=== PATIENT | male | born 1935 | race American Indian/Alaskan Native ===

== ENCOUNTER 2020-04-20 14:38 | Inpatient (IN) | payer MEDICARE, OTHER ==
[2020-04-20] MEDS ORDERED: FUROSEMIDE 40 MG/4 ML INJ IV ONE (14:46)
[2020-04-20] MEDS ORDERED: methylPREDNISolone Sod Succinate 125 MG/2 ML INJ IV ONE (14:46)
--- NOTE | 2020-04-20 15:33 | XRay Report ---
XR chest 1V ap INDICATION / CLINICAL INFORMATION: Hypoxia positive Covid test CHF. COMPARISON: 03/30/2020 FINDINGS: SUPPORT DEVICES: None. HEART /PULMONARY VASCULATURE: Within normal limits. LUNGS / PLEURA: Subtle patchy bilateral airspace opacities are present. No pleural effusion or pneumo thorax. ADDITIONAL FINDINGS: No significant additional findings. IMPRESSION: Subtle patchy bilateral airspace opacities, compatible with pneumonia. Findings are in keeping with r eported history of COVID. Signer Name: Alberto Sargent MD Signed: 04/20/2020 3:28 PM Workstation Name: [id number]
[2020-04-20 15:51] LABS: Hematocrit 32.1 % (35.5-45.6); Hemoglobin 10.4 gm/dl (11.8-15.2); Mean Corpuscular HGB Conc 32 % (32-34); Mean Corpuscular Volume 92 fl (84-94); Platelet Count 106 K/mm3 (140-440); Red Blood Count 3.47 M/mm3 (3.65-5.03); Red Cell Distribution Width 15.5 % (13.2-15.2)
[2020-04-20] MEDS ORDERED: VANCOMYCIN 2,000 MG in SODIUM CHLORIDE 0.9% 500 ML 500 ML IV ONE (16:00)
[2020-04-20] MEDS ORDERED: CEFEPIME/NS 2 GM/100 ML 2 GM/100 ML BAG IV SCH (16:00)
[2020-04-20] MEDS ORDERED: VANCOMYCIN PHARMACY TO DOSE IV SCH (16:00)
[2020-04-20 16:08] LABS: Albumin 1.8 g/dL (3.9-5); Calcium 7.9 mg/dL (8.4-10.2)
[2020-04-20 16:22] LABS: Chol/HDL Ratio 4.96 %
[2020-04-20 17:03] LABS: Basophils % (Manual) 0 % (0.0-1.8); Burr Cells Rare; Eosinophils % (Manual) 0 % (0.0-4.3); Macrocytosis Rare; Schistocytes Rare; Total Cells Counted 100
--- NOTE | 2020-04-20 17:27 | Emergency Department Report ---
ED Shortness of Breath HPI - General Chief Complaint: Dyspnea/Respdistress Stated Complaint: MANNIE/POSS COVID + Time Seen by Provider: 04/20/20 14:41 Source: patient, EMS Mode of arrival: Stretcher Limitations: No Limitations - History of Present Illness Initial Comments: CC: shortness of breath, +COVID HPI: This is an 84 yo male with hx of sepsis, UTI, chronic indwelling Velez catheter, diabetes mellitus, systolic heart failure, hypertension who presents with "pain all over". Also reported shortness of breath respiratory distress from medical staff at [facility]. Patient had a recent COVID-19 test 9 days ago on April 11. Patient has mild cough. Gradual symptoms today. MD Complaint: shortness of breath -: Gradual, days(s) (1) Severity: severe Consistency: constant Improves With: oxygen Worsens With: nothing Known History Of: congestive heart failure, other (Positive for COVID-19) Context: recent illness (Positive for COVID-19) Associated Symptoms: other (Body aches) Treatments Prior to Arrival: none (EMS transport with oxygen) - Related Data Home Medications Medication Instructions Recorded Confirmed Last Taken Bimatoprost [Lumigan 0.01%] 1 drop OP QPM 01/06/18 04/20/20 Unknown Colchicine 0.6 mg PO QDAY 01/06/18 04/20/20 Unknown Acetaminophen [Tylenol] 2 tab PO Q6H PRN 04/20/20 04/20/20 Unknown Furosemide [Lasix TAB] 40 mg PO QDAY 04/20/20 04/20/20 Unknown Potassium 20 meq PO DAILY 04/20/20 04/20/20 Unknown cephALEXin [Keflex] 500 mg PO QID 04/20/20 04/20/20 Unknown traMADoL [Ultram] 50 mg PO Q4HR PRN 04/20/20 04/20/20 Unknown Previous Rx's Medication Instructions Recorded Last Taken Type Apixaban [Eliquis] 5 mg PO BID #60 tablet 04/11/20 Unknown Rx Insulin Glargine [Lantus VIAL] 25 units SUB-Q QHS units 04/11/20 Unknown Rx Insulin Glargine [Lantus VIAL] 30 units SUB-Q QAMDIAB units 04/11/20 Unknown Rx Insulin Lispro [Humalog] 0 unit SUB-Q ACHS vial 04/11/20 Unknown Rx Insulin Lispro [Humalog] 10 unit SUB-Q AC vial 04/11/20 Unknown Rx Valsartan [Diovan] 160 mg PO DAILY tablet 04/11/20 Unknown Rx amLODIPine 10 mg PO QDAY tablet 04/11/20 Unknown Rx carvediloL [Coreg] 25 mg PO BID tablet 04/11/20 Unknown Rx hydrALAZINE [Apresoline TAB] 50 mg PO Q12HR tablet 04/11/20 Unknown Rx Allergies Allergy/AdvReac Type Severity Reaction Status Date / Time No Known Allergies Allergy Unverified 01/06/18 00:20 ED Review of Systems ROS: Stated complaint: MANNIE/POSS COVID + Other details as noted in HPI Comment: Unobtainable due to pts medical conditions (Limited due to severe work of breathing) ED Past Medical Hx - Past Medical History Previous Medical History?: Yes Hx Hypertension: Yes Hx CVA: Yes Hx Heart Attack/AMI: Yes Hx Congestive Heart Failure: Yes Hx Diabetes: Yes Hx Renal Disease: Yes Additional medical history: metabolic encephalopathy. sepsis. COVID 19. rhabdo. hyperkalemia. elevated white blood count. hypo-osmolality and hyponatremia - Surgical History Past Surgical History?: Yes Hx Coronary Stent: Yes Additional Surgical History: CARDIAC STENT - Social History Smoking Status: Never Smoker Substance Use Type: None - Medications Home Medications: Home Medications Medication Instructions Recorded Confirmed Last Taken Type Bimatoprost [Lumigan 0.01%] 1 drop OP QPM 01/06/18 04/20/20 Unknown History Colchicine 0.6 mg PO QDAY 01/06/18 04/20/20 Unknown History Apixaban [Eliquis] 5 mg PO BID #60 tablet 04/11/20 04/20/20 Unknown Rx Insulin Glargine [Lantus VIAL] 25 units SUB-Q QHS units 04/11/20 04/20/20 Unknown Rx Insulin Glargine [Lantus VIAL] 30 units SUB-Q QAMDIAB units 04/11/20 04/20/20 Unknown Rx Insulin Lispro [Humalog] 0 unit SUB-Q ACHS vial 04/11/20 04/20/20 Unknown Rx Insulin Lispro [Humalog] 10 unit SUB-Q AC vial 04/11/20 04/20/20 Unknown Rx Valsartan [Diovan] 160 mg PO DAILY tablet 04/11/20 04/20/20 Unknown Rx amLODIPine 10 mg PO QDAY tablet 04/11/20 04/20/20 Unknown Rx carvediloL [Coreg] 25 mg PO BID tablet 04/11/20 04/20/20 Unknown Rx hydrALAZINE [Apresoline TAB] 50 mg PO Q12HR tablet 04/11/20 04/20/20 Unknown Rx Acetaminophen [Tylenol] 2 tab PO Q6H PRN 04/20/20 04/20/20 Unknown History Furosemide [Lasix TAB] 40 mg PO QDAY 04/20/20 04/20/20 Unknown History Potassium 20 meq PO DAILY 04/20/20 04/20/20 Unknown History cephALEXin [Keflex] 500 mg PO QID 04/20/20 04/20/20 Unknown History traMADoL [Ultram] 50 mg PO Q4HR PRN 04/20/20 04/20/20 Unknown History ED Physical Exam - General Limitations: No Limitations General appearance: alert, in distress, other (Severe work of breathing tachypnea only able to give 1 word sentences to questions) - Head Head exam: Present: atraumatic, normocephalic - Eye Eye exam: Present: normal appearance - ENT ENT exam: Present: mucous membranes moist - Neck Neck exam: Present: normal inspection - Respiratory Respiratory exam: Present: respiratory distress, accessory muscle use, decreased breath sounds. Absent: wheezes, rales, rhonchi - Cardiovascular Cardiovascular Exam: Present: regular rate, normal rhythm, normal heart sounds. Absent: systolic murmur, diastolic murmur, rubs, gallop - GI/Abdominal GI/Abdominal exam: Present: soft, normal bowel sounds. Absent: distended, tenderness, guarding, rebound - Rectal Rectal exam: Present: deferred - Extremities Exam Extremities exam: Present: pedal edema, other (Nonpitting edema lower extremities mild) - Neurological Exam Neurological exam: Present: alert, oriented X3 - Psychiatric Psychiatric exam: Present: normal affect, anxious - Skin Skin exam: Present: warm, dry, intact, normal color. Absent: rash ED Course Vital Signs 04/20/20 04/20/20 04/20/20 14:51 15:10 15:16 Temperature Pulse Rate 98 H 96 H 98 H Respiratory 32 H 19 36 H Rate Blood Pressure Blood Pressure [Left] O2 Sat by Pulse 96 100 Oximetry 04/20/20 04/20/20 04/20/20 15:19 15:20 15:30 Temperature 99.2 F Pulse Rate 95 H 100 H Respiratory 36 H 36 H 31 H Rate Blood Pressure 121/56 Blood Pressure 121/56 [Left] O2 Sat by Pulse 100 100 Oximetry 04/20/20 04/20/20 04/20/20 15:46 16:00 16:16 Temperature Pulse Rate 95 H 94 H 94 H Respiratory 43 H 34 H 32 H Rate Blood Pressure 121/56 121/56 111/58 Blood Pressure [Left] O2 Sat by Pulse 100 99 100 Oximetry 04/20/20 04/20/20 04/20/20 16:30 16:46 17:00 Temperature Pulse Rate 90 90 97 H Respiratory 35 H 29 H 32 H Rate Blood Pressure 111/58 111/58 111/58 Blood Pressure [Left] O2 Sat by Pulse 99 99 99 Oximetry ED Medical Decision Making - Lab Data Result diagrams: 04/20/20 15:06 04/20/20 15:06 - Medical Decision Making 1. Acute respiratory failure due to multifocal pneumonia, patient is positive for COVID-19. Immediately upon arrival I asked as respiratory therapist by noninvasive positive pressure ventilation. Also ordered broad-spectrum antibiotics as well as IV furosemide for diuresis considering history of heart failure. Contact droplet precautions. 2. Sepsis: Significant leukocytosis with lactic acidosis, multifocal pneumonia possible superimposed bacterial infection in the setting of COVID-19 infection. Will rule out UTI. Patient does have indwelling Velez catheter. Leg bag was filled with dark clear urine upon arrival. Nurse staff member removed leg bag discarding urine. Patient has yet to produce urine while in the emergency department after 3 hours observation. Earlier this month on March 30, patient urine culture grew out pansensitive Citrobacter 3. Acute kidney injury: Multifactorial. Sepsis, diuretic use, volume contraction Critical care time in (mins) excluding proc time.: 40 Critical care attestation.: If time is entered above; I have spent that time in minutes in the direct care of this critically ill patient, excluding procedure time. 40 minutes of critical care time excluding procedures were used in the care of the patient. I came immediately to the bedside upon patient's arrival. I obtained history from EMS at the bedside. I discussed treatment plan with the nursing team members. I reviewed electronic record. I was concerned for imminent airway failure. Patient required multiple interventions and reassessments. ED Disposition Clinical Impression: Acute respiratory failure, Multifocal pneumonia, COVID-19, Acute kidney injury, Sepsis Disposition: [id number] OP ADMIT IP TO THIS HOSP Is pt being admited?: Yes Does the pt Need Aspirin: No Condition: Stable Instructions: Bacterial Pneumonia (ED) Referrals: PRIMARY CARE, [Primary Care Provider] - 3-5 Days
--- NOTE | 2020-04-20 18:10 | History and Physical Report ---
History of Present Illness Chief complaint: He cant breathe History of present illness: 84 YO Male Jail Facility Resident at [facility] with Coronavirus Infection diagnosed 1 week ago, DM, HTN, CAD S/P Stent Placement, CHF, Urinary Obstruction with Chronic Velez Catheter placement presents to ED for evaluation. Patient is confused and in respiratory distress at the time of my evaluation and is unable to provide detailed history. Patient history taken from ED staff, EMS staff, as well as snf facility staff. As per staff the patient has experienced worsening shortness of breath over the past 1 day, with increased work of breathing. EMS was notified and up on arrival the patient was found to be in distress and subsequently transported to [facility] for further care and evaluation of the aforementioned symptoms. Patient seen and evaluated in the emergency department. All lab and imaging studies reviewed. Patient found to have a pulse oximetry of 86% on room air which is consistent with acute hypoxemic respiratory failure. Patient placed on noninvasive positive pressure ventilation with mild improvement in symptoms. Patient underwent chest x-ray and was found to have bilateral pneumonia complicated by sepsis, acute kidney injury. Patient admitted to ICU and initiated on sepsis protocol due to increased risk of multiple symptom organ dysfunction. Critical care team consulted. No further history obtainable. Advanced care planning conducted in ED. Past History Past Medical History: acute GA, CAD, diabetes, heart failure, hypertension, other (See HPI) Past Surgical History: Other (Cardiac stent placement) Social history: . denies: smoking, alcohol abuse Family history: diabetes, hypertension Medications and Allergies Allergies Allergy/AdvReac Type Severity Reaction Status Date / Time No Known Allergies Allergy Unverified 01/06/18 00:20 Home Medications Medication Instructions Recorded Confirmed Last Taken Type Bimatoprost [Lumigan 0.01%] 1 drop OP QPM 01/06/18 04/20/20 Unknown History Colchicine 0.6 mg PO QDAY 01/06/18 04/20/20 Unknown History Apixaban [Eliquis] 5 mg PO BID #60 tablet 04/11/20 04/20/20 Unknown Rx Insulin Glargine [Lantus VIAL] 25 units SUB-Q QHS units 04/11/20 04/20/20 Unknown Rx Insulin Glargine [Lantus VIAL] 30 units SUB-Q QAMDIAB units 04/11/20 04/20/20 Unknown Rx Insulin Lispro [Humalog] 0 unit SUB-Q ACHS vial 04/11/20 04/20/20 Unknown Rx Insulin Lispro [Humalog] 10 unit SUB-Q AC vial 04/11/20 04/20/20 Unknown Rx Valsartan [Diovan] 160 mg PO DAILY tablet 04/11/20 04/20/20 Unknown Rx amLODIPine 10 mg PO QDAY tablet 04/11/20 04/20/20 Unknown Rx carvediloL [Coreg] 25 mg PO BID tablet 04/11/20 04/20/20 Unknown Rx hydrALAZINE [Apresoline TAB] 50 mg PO Q12HR tablet 04/11/20 04/20/20 Unknown Rx Acetaminophen [Tylenol] 2 tab PO Q6H PRN 04/20/20 04/20/20 Unknown History Furosemide [Lasix TAB] 40 mg PO QDAY 04/20/20 04/20/20 Unknown History Potassium 20 meq PO DAILY 04/20/20 04/20/20 Unknown History cephALEXin [Keflex] 500 mg PO QID 04/20/20 04/20/20 Unknown History traMADoL [Ultram] 50 mg PO Q4HR PRN 04/20/20 04/20/20 Unknown History Active Meds: Active Medications Cefepime HCl (Cefepime/Ns 1 Gm/100 Ml) 1 gm in 100 mls @ 200 mls/hr IV Q24H NEFTALI Vancomycin HCl 1,250 mg/ (Sodium Chloride) 275 mls @ 183.333 mls/hr IV Q24H NEFTALI Review of Systems ROS unobtainable: due to mental status Exam - Constitutional Vitals: Temp Pulse Resp BP Pulse Ox 99.2 F 97 H 32 H 111/58 99 04/20/20 15:19 04/20/20 17:00 04/20/20 17:00 04/20/20 17:00 04/20/20 17:00 General appearance: Present: severe distress - EENT Eyes: Present: PERRL ENT: hearing intact, clear oral mucosa - Neck Neck: Present: supple, normal ROM - Respiratory Respiratory effort: labored, pursed lips, accessory muscle use, stridor Respiratory: bilateral: diminished, rhonchi - Cardiovascular Rhythm: other (Tachycardia) Heart Sounds: Present: S1 & S2. Absent: rub, click - Extremities Extremities: pulses symmetrical Extremity abnormal: edema Peripheral Pulses: abnormal (Capillary refill greater than 3.5 seconds) - Abdominal General gastrointestinal: Present: soft, non-tender, non-distended, normal bowel sounds Male genitourinary: Present: normal - Integumentary Integumentary: Present: clear, warm, dry - Musculoskeletal Musculoskeletal: generalized weakness - Psychiatric Psychiatric: no intact judgment & insight, no memory intact - Neurologic Neurologic: CNII-XII intact, moves all extremities, no gait normal HEART Score - HEART Score Troponin: Troponin T 0.047 ng/mL (0.00-0.029) H 04/20/20 15:06 Results - Labs CBC & Chem 7: 04/20/20 15:06 04/20/20 15:06 Labs: Abnormal lab results 04/20/20 04/20/20 04/20/20 Range/Units 15:06 15:06 15:06 WBC 33.4 H (4.5-11.0) K/mm3 RBC 3.47 L (3.65-5.03) M/mm3 Hgb 10.4 L (11.8-15.2) gm/dl Hct 32.1 L (35.5-45.6) % RDW 15.5 H (13.2-15.2) % Plt Count 106 L (140-440) K/mm3 Seg Neuts % (Manual) 82.0 H (40.0-70.0) % Lymphocytes % (Manual) 6.0 L (13.4-35.0) % Monocytes % (Manual) 12.0 H (0.0-7.3) % Seg Neutrophils # Man 27.4 H (1.8-7.7) K/mm3 Monocytes # (Manual) 4.0 H (0.0-0.8) K/mm3 Sodium 129 L (137-145) mmol/L Chloride 97.2 L (98-107) mmol/L Carbon Dioxide 20 L (22-30) mmol/L BUN 32 H (9-20) mg/dL Creatinine 2.0 H (0.8-1.3) mg/dL Glucose 318 H (75-100) mg/dL Lactic Acid 2.50 H* (0.7-2.0) mmol/L Calcium 7.9 L (8.4-10.2) mg/dL AST 69 H (5-40) units/L ALT 87 H (7-56) units/L Troponin T 0.047 H (0.00-0.029) ng/mL Total Protein 5.6 L (6.3-8.2) g/dL Albumin 1.8 L (3.9-5) g/dL HDL Cholesterol 25 L (40-59) mg/dL 04/20/20 Range/Units 16:49 WBC (4.5-11.0) K/mm3 RBC (3.65-5.03) M/mm3 Hgb (11.8-15.2) gm/dl Hct (35.5-45.6) % RDW (13.2-15.2) % Plt Count (140-440) K/mm3 Seg Neuts % (Manual) (40.0-70.0) % Lymphocytes % (Manual) (13.4-35.0) % Monocytes % (Manual) (0.0-7.3) % Seg Neutrophils # Man (1.8-7.7) K/mm3 Monocytes # (Manual) (0.0-0.8) K/mm3 Sodium (137-145) mmol/L Chloride (98-107) mmol/L Carbon Dioxide (22-30) mmol/L BUN (9-20) mg/dL Creatinine (0.8-1.3) mg/dL Glucose (75-100) mg/dL Lactic Acid 2.70 H* (0.7-2.0) mmol/L Calcium (8.4-10.2) mg/dL AST (5-40) units/L ALT (7-56) units/L Troponin T (0.00-0.029) ng/mL Total Protein (6.3-8.2) g/dL Albumin (3.9-5) g/dL HDL Cholesterol (40-59) mg/dL Assessment and Plan - Patient Problems (1) Sepsis Current Visit: Yes Status: Acute Plan to address problem: Sepsis protocol: CBC, CMP, chest x-ray, urinalysis, IV antibiotic therapy, monitor urine output every shift, monitor fluid balance, serial lactic acid level, blood cultures, maintain mean arterial blood pressure greater than or equal to 65. IV pressor support as clinically indicated. The high probability of a clinically significant, sudden or life threatening deterioration of the [cardiac, neuro, respiratory, renal, infectious disease] system(s) required my full and direct attention, intervention and personal management. The aggregate critical care time was [90] minutes. This time is in addition to time spent performing reported procedures but includes the fol lowing: [x] Data Review and interpretation [x] Patient assessment and monitoring of vital signs [x] Documentation [x] Medication orders and management (2) Acute respiratory failure Current Visit: Yes Status: Acute Qualifiers: Respiratory failure complication: hypoxia Qualified Code(s): J96.01 - Acute respiratory failure with hypoxia Plan to address problem: Supplemental oxygen, nebulizer therapy, pulse oximetry, noninvasive positive pressure ventilation, pulmonary toilet. (3) Acute kidney injury Current Visit: Yes Status: Acute Plan to address problem: Monitor urine output every shift, BMP, repeat BMP in a.m. Monitor fluid balance due to coronavirus infection. Care is taken not to maintain positive fluid balance to precipitate pulmonary edema. (4) COVID-19 Current Visit: Yes Status: Acute Plan to address problem: Coronavirus infection: Contact precautions, isolation precautions, IV antibiotic therapy, IV steroid therapy, supportive care. (5) Multifocal pneumonia Current Visit: Yes Status: Acute Plan to address problem: Pneumonia protocol: IV antibiotic therapy, chest x-ray, CBC, BMP, supplemental oxygen, pulse oximetry, blood cultures. (6) Heart failure Current Visit: No Status: Acute Qualifiers: Heart failure chronicity: chronic Plan to address problem: Monitor urine output every shift, strict I's/O, afterload reduction, supplemental oxygen, diuresis as clinically indicated. (7) CAD (coronary artery disease) Current Visit: No Status: Chronic Qualifiers: Associated angina: without angina Plan to address problem: Supportive care, risk factor reduction, continue antiplatelet therapy. (8) Diabetes Current Visit: No Status: Chronic Qualifiers: Diabetes mellitus type: type 2 Plan to address problem: Sliding-scale insulin, Accu-Chek, hypoglycemia protocol, diet when alert and awake only (9) DVT prophylaxis Current Visit: No Status: Acute Plan to address problem: SCD to bilateral lower extremities while in bed, prophylactic anticoagulation. (10) Advance care planning Current Visit: Yes Status: Acute Plan to address problem: Disease education conducted, patient is full code, care plan discussed, prognosis discussed, patient has poor prognosis. Patient care plan discussed with patient daughter. Patient daughter acknowledges understanding and ag reement with care plan. +30 minutes.
[2020-04-20] MEDS ORDERED: ACETAMINOPHEN 325 MG TAB PO PRN (18:15)
[2020-04-20] MEDS ORDERED: ALBUTEROL 2.5 MG/3 ML NEBU IH PRN (18:15)
[2020-04-20] MEDS ORDERED: traMADol 50 MG TAB PO PRN (18:20)
[2020-04-20] MEDS ORDERED: NON-FORMULARY EACH (Acetaminophen [Tylenol] 2 TAB) PO PRN (18:20)
[2020-04-20] MEDS ORDERED: DEXTROSE 50% IN WATER (25GM) 50 ML SYRINGE IV PRN (18:21)
[2020-04-20] MEDS: INSULIN LISPRO 100 UNIT/ML VIAL 3 mL SUB-Q SCH (22:30)
[2020-04-20] MEDS: APIXABAN 5 MG TAB PO SCH (22:30)
[2020-04-21] MEDS ORDERED: traMADol 50 MG TAB ONE (04:39)
[2020-04-21] MEDS ORDERED: FUROSEMIDE 20 MG/2 ML INJ ONE (06:05)
[2020-04-21] MEDS: FUROSEMIDE 20 MG/2 ML INJ IV SCH (06:22)
[2020-04-21] MEDS ORDERED: INSULIN LISPRO 100 UNIT/ML VIAL 3 mL SUB-Q ONE ×5 (08:13→18:26)
[2020-04-21] MEDS: INSULIN LISPRO 100 UNIT/ML VIAL 3 mL SUB-Q SCH ×5 (08:59→18:29)
--- NOTE | 2020-04-21 09:55 | Progress Note ---
Assessment and Plan Assessment and plan: (1) Sepsis Current Visit: Yes Status: Acute Plan to address problem: Sepsis protocol: CBC, CMP, chest x-ray, urinalysis, IV antibiotic therapy, monitor urine output every shift, monitor fluid balance, serial lactic acid level, blood cultures, maintain mean arterial blood pressure greater than or equal to 65. IV pressor support as clinically indicated. The high probability of a clinically significant, sudden or life threatening deterioration of the [cardiac, neuro, respiratory, renal, infectious disease] system(s) required my full and direct attention, intervention and personal management. The aggregate critical care time was [90] minutes. This time is in addition to time spent performing reported procedures but includes the following: [x] Data Review and interpretation [x] Patient assessment and monitoring of vital signs [x] Documentation [x] Medication orders and management (2) Acute respiratory failure Current Visit: Yes Status: Acute Qualifiers: Respiratory failure complication: hypoxia Qualified Code(s): J96.01 - Acute respiratory failure with hypoxia Plan to address problem: Supplemental oxygen, nebulizer therapy, pulse oximetry, noninvasive positive pressure ventilation, pulmonary toilet. (3) Acute kidney injury Current Visit: Yes Status: Acute Plan to address problem: Monitor urine output every shift, BMP, repeat BMP in a.m. Monitor fluid balance due to coronavirus infection. Care is taken not to maintain positive fluid balance to precipitate pulmonary edema. (4) COVID-19 Current Visit: Yes Status: Acute Plan to address problem: Coronavirus infection: Contact precautions, isolation precautions, IV antibiotic therapy, IV steroid therapy, supportive care. (5) Multifocal pneumonia Current Visit: Yes Status: Acute Plan to address problem: Pneumonia protocol: IV antibiotic therapy, chest x-ray, CBC, BMP, supplemental oxygen, pulse oximetry, blood cultures. (6) Heart failure Current Visit: No Status: Acute Qualifiers: Heart failure chronicity: chronic Plan to address problem: Monitor urine output every shift, strict I's/O, afterload reduction, supplemental oxygen, diuresis as clinically indicated. (7) CAD (coronary artery disease) Current Visit: No Status: Chronic Qualifiers: Associated angina: without angina Plan to address problem: Supportive care, risk factor reduction, continue antiplatelet therapy. (8) Diabetes Current Visit: No Status: Chronic Qualifiers: Diabetes mellitus type: type 2 Plan to address problem: Sliding-scale insulin, Accu-Chek, hypoglycemia protocol, diet when alert and awake only (9) DVT prophylaxis Current Visit: No Status: Acute Plan to address problem: SCD to bilateral lower extremities while in bed, prophylactic anticoagulation. (10) Advance care planning Current Visit: Yes Status: Acute Plan to address problem: Full code 04/13/2020 -Patient is on IV antibiotics for pneumonia, Covid test is pending. Pulmonary consult appreciated. History Interval history: Patient was seen and evaluated this morning Patient said he is feeling short of breath Patient is on BiPAP Hospitalist Physical - Physical exam Narrative exam: Patient is on BiPAP The patient is morbidly obese. Vital signs as documented. Head exam is unremarkable. No scleral icterus . Neck is without jugular venous distension, thyromegaly, or carotid bruits. Lungs are clear to auscultation. Cardiac exam reveals regular rate and Rhythm. Abdominal exam reveals normal bowel sounds, nontender, no organomegaly. Extremities are nonedematous and both femoral and pedal pulses are normal. [employer]ER[employer] ME[employer]IC: Alert and oriented 3. No focal weakness. - Constitutional Vitals: Temp Pulse Resp BP Pulse Ox 99.2 F 84 38 H 129/54 100 04/20/20 15:19 04/21/20 08:20 04/21/20 08:20 04/21/20 08:20 04/21/20 08:20 General appearance: Present: severe distress HEART Score - HEART Score Troponin: Troponin T 0.047 ng/mL (0.00-0.029) H 04/20/20 15:06 Results - Labs CBC & Chem 7: 04/21/20 10:14 04/21/20 10:14 Labs: Laboratory Last Values WBC 33.4 K/mm3 (4.5-11.0) H 04/20/20 15:06 RBC 3.47 M/mm3 (3.65-5.03) L 04/20/20 15:06 Hgb 10.4 gm/dl (11.8-15.2) L 04/20/20 15:06 Hct 32.1 % (35.5-45.6) L 04/20/20 15:06 MCV 92 fl (84-94) 04/20/20 15:06 MCH 30 pg (28-32) 04/20/20 15:06 MCHC 32 % (32-34) 04/20/20 15:06 RDW 15.5 % (13.2-15.2) H 04/20/20 15:06 Plt Count 106 K/mm3 (140-440) L 04/20/20 15:06 Add Manual Diff Complete 04/20/20 15:06 Total Counted 100 04/20/20 15:06 Seg Neuts % (Manual) 82.0 % (40.0-70.0) H 04/20/20 15:06 Band Neutrophils % 0 % 04/20/20 15:06 Lymphocytes % (Manual) 6.0 % (13.4-35.0) L 04/20/20 15:06 Reactive Lymphs % (Man) 0 % 04/20/20 15:06 Monocytes % (Manual) 12.0 % (0.0-7.3) H 04/20/20 15:06 Eosinophils % (Manual) 0 % (0.0-4.3) 04/20/20 15:06 Basophils % (Manual) 0 % (0.0-1.8) 04/20/20 15:06 Metamyelocytes % 0 % 04/20/20 15:06 Myelocytes % 0 % 04/20/20 15:06 Promyelocytes % 0 % 04/20/20 15:06 Blast Cells % 0 % 04/20/20 15:06 Nucleated RBC % Not Reportable 04/20/20 15:06 Seg Neutrophils # Man 27.4 K/mm3 (1.8-7.7) H 04/20/20 15:06 Band Neutrophils # 0.0 K/mm3 04/20/20 15:06 Lymphocytes # (Manual) 2.0 K/mm3 (1.2-5.4) 04/20/20 15:06 Abs React Lymphs (Man) 0.0 K/mm3 04/20/20 15:06 Monocytes # (Manual) 4.0 K/mm3 (0.0-0.8) H 04/20/20 15:06 Eosinophils # (Manual) 0.0 K/mm3 (0.0-0.4) 04/20/20 15:06 Basophils # (Manual) 0.0 K/mm3 (0.0-0.1) 04/20/20 15:06 Metamyelocytes # 0.0 K/mm3 04/20/20 15:06 Myelocytes # 0.0 K/mm3 04/20/20 15:06 Promyelocytes # 0.0 K/mm3 04/20/20 15:06 Blast Cells # 0.0 K/mm3 04/20/20 15:06 WBC Morphology Not Reportable 04/20/20 15:06 Hypersegmented Neuts Not Reportable 04/20/20 15:06 Hyposegmented Neuts Not Reportable 04/20/20 15:06 Hypogranular Neuts Not Reportable 04/20/20 15:06 Smudge Cells Not Reportable 04/20/20 15:06 Toxic Granulation Not Reportable 04/20/20 15:06 Toxic Vacuolation Not Reportable 04/20/20 15:06 Dohle Bodies Not Reportable 04/20/20 15:06 Pelger-Huet Anomaly Not Reportable 04/20/20 15:06 Yane Rods Not Reportable 04/20/20 15:06 Platelet Estimate Not Reportable 04/20/20 15:06 Clumped Platelets Not Reportable 04/20/20 15:06 Plt Clumps, EDTA Not Reportable 04/20/20 15:06 Large Platelets Not Reportable 04/20/20 15:06 Giant Platelets Not Reportable 04/20/20 15:06 Platelet Satelliting Not Reportable 04/20/20 15:06 Plt Morphology Comment Not Reportable 04/20/20 15:06 RBC Morphology Not Reportable 04/20/20 15:06 Dimorphic RBCs Not Reportable 04/20/20 15:06 Polychromasia Not Reportable 04/20/20 15:06 Hypochromasia Not Reportable 04/20/20 15:06 Poikilocytosis Not Reportable 04/20/20 15:06 Anisocytosis Not Reportable 04/20/20 15:06 Microcytosis Rare 04/20/20 15:06 Macrocytosis Rare 04/20/20 15:06 Spherocytes Not Reportable 04/20/20 15:06 Pappenheimer Bodies Not Reportable 04/20/20 15:06 Sickle Cells Not Reportable 04/20/20 15:06 Target Cells Not Reportable 04/20/20 15:06 Tear Drop Cells Not Reportable 04/20/20 15:06 Ovalocytes Not Reportable 04/20/20 15:06 Helmet Cells Not Reportable 04/20/20 15:06 [place] Bodies Not Reportable 04/20/20 15:06 [place] Rings Not Reportable 04/20/20 15:06 [place] Cells Rare 04/20/20 15:06 Bite Cells Not Reportable 04/20/20 15:06 Crenated Cell Not Reportable 04/20/20 15:06 Elliptocytes Not Reportable 04/20/20 15:06 Acanthocytes (Spur) Not Reportable 04/20/20 15:06 Rouleaux Not Reportable 04/20/20 15:06 Hemoglobin C Crystals Not Reportable 04/20/20 15:06 Schistocytes Rare 04/20/20 15:06 Malaria parasites Not Reportable 04/20/20 15:06 [place] Bodies Not Reportable 04/20/20 15:06 Hem Pathologist Commnt Sent to pathology 04/20/20 15:06 ABG pH 7.384 (7.320-7.450) 04/20/20 20:50 POC ABG pCO2 30.5 mmHg (32.0-48.0) L 04/20/20 20:50 POC ABG HCO3 17.8 04/20/20 20:50 POC ABG Base Excess -6.2 04/20/20 20:50 ABG Hemoglobin 10.9 (12.0-17.5) L 04/20/20 20:50 ABG Oxyhemoglobin 98.6 (94-98) H 04/20/20 20:50 ABG Methemoglobin 0.3 (0.0-1.5) 04/20/20 20:50 ABG Sodium 127.7 mmol/L (136.0-145.0) L 04/20/20 20:50 ABG Potassium 5.1 mmol/L (3.40-4.50) H 04/20/20 20:50 ABG Chloride 101.0 mmol/L (98-107) 04/20/20 20:50 ABG Glucose 342 mg/dL (65-95) H 04/20/20 20:50 Carboxyhemoglobin 0.2 (0.5-1.5) L 04/20/20 20:50 FiO2 40 04/20/20 20:50 Sodium 129 mmol/L (137-145) L 04/20/20 15:06 Potassium 5.0 mmol/L (3.6-5.0) 04/20/20 15:06 Chloride 97.2 mmol/L (98-107) L 04/20/20 15:06 Carbon Dioxide 20 mmol/L (22-30) L 04/20/20 15:06 Anion Gap 17 mmol/L 04/20/20 15:06 BUN 32 mg/dL (9-20) H 04/20/20 15:06 Creatinine 2.0 mg/dL (0.8-1.3) H 04/20/20 15:06 Estimated GFR 39 ml/min 04/20/20 15:06 BUN/Creatinine Ratio 16 % 04/20/20 15:06 Glucose 318 mg/dL (75-100) H 04/20/20 15:06 POC Glucose 339 mg/dL (70-105) H 04/21/20 08:06 Lactic Acid 1.70 mmol/L (0.7-2.0) 04/21/20 05:49 Calcium 7.9 mg/dL (8.4-10.2) L 04/20/20 15:06 Total Bilirubin 1.10 mg/dL (0.1-1.2) 04/20/20 15:06 AST 69 units/L (5-40) H 04/20/20 15:06 ALT 87 units/L (7-56) H 04/20/20 15:06 Alkaline Phosphatase 94 units/L (35-129) 04/20/20 15:06 Troponin T 0.047 ng/mL (0.00-0.029) H 04/20/20 15:06 Total Protein 5.6 g/dL (6.3-8.2) L 04/20/20 15:06 Albumin 1.8 g/dL (3.9-5) L 04/20/20 15:06 Albumin/Globulin Ratio 0.5 % 04/20/20 15:06 Triglycerides 127 mg/dL (2-149) 04/20/20 15:06 Cholesterol 124 mg/dL (50-199) 04/20/20 15:06 LDL Cholesterol Direct 71 mg/dL (50-130) 04/20/20 15:06 HDL Cholesterol 25 mg/dL (40-59) L 04/20/20 15:06 Cholesterol/HDL Ratio 4.96 % 04/20/20 15:06 Arterial Blood Glucose 342 mg/dL (65-95) H 04/20/20 20:50 Arterial Blood Ionized Calcium 4.3 mg/dL (4.6-5.3) L 04/20/20 20:50 Microbiology: Microbiology 04/20/20 15:09 Peripheral/Venous Blood Culture - Preliminary Culture in Progress 04/20/20 15:06 Peripheral/Venous Blood Culture - Preliminary Culture in Progress Velez/IV: IV Catheter Type [Right INT / Saline Lock Antecubital] Active Medications - Current Medications Current Medications: Generic Name Dose Route Start Last Admin Trade Name Freq PRN Reason Stop Dose Admin Acetaminophen 650 mg 04/20/20 18:15 Tylenol PO Q6H PRN Pain, Mild (1-3) Albuterol 2.5 mg 04/20/20 18:15 Proventil IH Q3HRT PRN Shortness Of Breath Apixaban 5 mg 04/20/20 22:00 04/20/20 22:30 Eliquis PO 5 mg BID [facility] Administration Protocol Colchicine 0.6 mg 04/21/20 10:00 Colchicine PO QDAY [facility] Dextrose 50 ml 04/20/20 18:21 D50w (25gm) Syringe IV Q30MIN PRN Hypoglycemia Protocol Furosemide 20 mg 04/21/20 06:00 04/21/20 06:22 Lasix IV 20 mg DAILY@0600 [facility] Administration Hydromorphone HCl 0.25 mg 04/20/20 18:15 Dilaudid IV Q4H PRN Pain, Moderate (4-6) Cefepime HCl 1 gm in 100 mls @ 200 mls/hr 04/21/20 16:00 Cefepime/Ns 1 Gm/100 Ml IV Q24H [facility] Vancomycin HCl 1,250 mg/ 275 mls @ 183.333 mls/hr 04/21/20 16:00 Sodium Chloride IV Q24H [facility] Insulin Human Lispro 0 unit 04/20/20 22:00 04/21/20 08:59 Humalog SUB-Q 6 unit ACHS [facility] Administration Protocol Latanoprost 1 drops 04/21/20 18:00 Latanoprost 0.005% OU QPM [facility] Miscellaneous Medication 20 meq 04/21/20 10:00 Potassium [Potassium] PO DAILY [facility] Sodium Chloride 10 ml 04/20/20 22:00 04/20/20 22:30 Sodium Chloride Flush Syringe 10 Ml IV 10 ml BID [facility] Administration Sodium Chloride 10 ml 04/20/20 18:15 Sodium Chloride Flush Syringe 10 Ml IV PRN PRN LINE FLUSH Tramadol HCl 50 mg 04/20/20 18:20 Ultram PO Q4HR PRN PAIN
[2020-04-21] MEDS ORDERED: COLCHICINE 0.6 MG CAP PO SCH (10:00)
[2020-04-21] MEDS ORDERED: POTASSIUM 20 MEQ PO SCH (10:00)
[2020-04-21 10:46] LABS: Hematocrit 31.6 % (35.5-45.6); Hemoglobin 10.4 gm/dl (11.8-15.2); Mean Corpuscular HGB Conc 33 % (32-34); Mean Corpuscular Volume 90 fl (84-94); Platelet Count 101 K/mm3 (140-440); Red Cell Distribution Width 15.2 % (13.2-15.2)
[2020-04-21] MEDS ORDERED: HYDROmorphone 1 MG/1 ML INJ ONE ×4 (11:06→23:36)
[2020-04-21 11:58] LABS: Calcium 8.1 mg/dL (8.4-10.2)
[2020-04-21] MEDS: HYDROmorphone 1 MG/1 ML INJ IV PRN ×3 (12:05→23:52)
[2020-04-21] MEDS ORDERED: APIXABAN 5 MG TAB ONE (12:24)
[2020-04-21] MEDS ORDERED: COLCHICINE 0.6 MG CAP ONE (12:24)
--- NOTE | 2020-04-21 12:26 | Consultation ---
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 Patient is confused and in respiratory distress at the time of my evaluation and is unable to provide detailed history. Patient history taken from ED staff, EMS staff, as well as senior care facility staff. As per staff the patient has experienced worsening shortness of breath over the past 1 day, with increased work of breathing. EMS was notified and upon arrival the patient was found to be in distress and subsequently tr ansported to [facility] for further care and evaluation of the aforementioned symptoms. Patient seen and evaluated in the emergency department. All lab and imaging studies reviewed. Patient found to have a pulse oximetry of 86% on room air which is consistent with acute hypoxemic respiratory failure. Patient placed on noninvasive positive pressure ventilation with mild improvement in symptoms. Patient underwent chest x-ray and was found to have bilateral pneumonia complicated by sepsis, acute kidney injury. Patient admitted to ICU and initiated on sepsis protocol due to increased risk of multiple symptom organ dysfunction. Patient seen and examined with RN at the bedside Extremely diaphoretic on high flow oxygen but appropriate monsyllabic responses. Unable to give a history, history as per documentation of Pathology Lab Technician Switched back to BIPAP and asked RT to get a stat ABG. Past History Past Medical History: acute VA, CAD, diabetes, heart failure, hypertension, other (See HPI) Past Surgical History: Other (Cardiac stent placement) Social history: . denies: smoking, alcohol abuse Family history: diabetes, hypertension Medications and Allergies Allergies Allergy/AdvReac Type Severity Reaction Status Date / Time No Known Allergies Allergy Unverified 01/06/18 00:20 Home Medications Medication Instructions Recorded Confirmed Last Taken Type Bimatoprost [Lumigan 0.01%] 1 drop OP QPM 01/06/18 04/20/20 Unknown History Colchicine 0.6 mg PO QDAY 01/06/18 04/20/20 Unknown History Apixaban [Eliquis] 5 mg PO BID #60 tablet 04/11/20 04/20/20 Unknown Rx Insulin Glargine [Lantus VIAL] 25 units SUB-Q QHS units 04/11/20 04/20/20 Unknown Rx Insulin Glargine [Lantus VIAL] 30 units SUB-Q QAMDIAB units 04/11/20 04/20/20 Unknown Rx Insulin Lispro [Humalog] 0 unit SUB-Q ACHS vial 04/11/20 04/20/20 Unknown Rx Insulin Lispro [Humalog] 10 unit SUB-Q AC vial 04/11/20 04/20/20 Unknown Rx Valsartan [Diovan] 160 mg PO DAILY tablet 04/11/20 04/20/20 Unknown Rx amLODIPine 10 mg PO QDAY tablet 04/11/20 04/20/20 Unknown Rx carvediloL [Coreg] 25 mg PO BID tablet 04/11/20 04/20/20 Unknown Rx hydrALAZINE [Apresoline TAB] 50 mg PO Q12HR tablet 04/11/20 04/20/20 Unknown Rx Acetaminophen [Tylenol] 2 tab PO Q6H PRN 04/20/20 04/20/20 Unknown History Furosemide [Lasix TAB] 40 mg PO QDAY 04/20/20 04/20/20 Unknown History Potassium 20 meq PO DAILY 04/20/20 04/20/20 Unknown History cephALEXin [Keflex] 500 mg PO QID 04/20/20 04/20/20 Unknown History traMADoL [Ultram] 50 mg PO Q4HR PRN 04/20/20 04/20/20 Unknown History Active Meds: Active Medications Acetaminophen (Tylenol) 650 mg PO Q6H PRN PRN Reason: Pain, Mild (1-3) Albuterol (Proventil) 2.5 mg IH Q3HRT PRN PRN Reason: Shortness Of Breath Apixaban (Eliquis) 5 mg PO BID [facility]; Protocol Last Admin: 04/20/20 22:30 Dose: 5 mg Documented by: Colchicine (Colchicine) 0.6 mg PO QOD [facility] Dextrose (D50w (25gm) Syringe) 50 ml IV Q30MIN PRN; Protocol PRN Reason: Hypoglycemia Furosemide (Lasix) 20 mg IV DAILY@0600 [facility] Last Admin: 04/21/20 06:22 Dose: 20 mg Documented by: Hydromorphone HCl (Dilaudid) 0.25 mg IV Q4H PRN PRN Reason: Pain, Moderate (4-6) Cefepime HCl (Cefepime/Ns 2 Gm/100 Ml) 2 gm in 100 mls @ 200 mls/hr IV Q24HR [facility] Insulin Glargine (Lantus) 25 units SUB-Q QHS [facility] Insulin Glargine (Lantus) 30 units SUB-Q QAMDIAB [facility] Insulin Human Lispro (Humalog) 0 unit SUB-Q ACHS [facility]; Protocol Last Admin: 04/21/20 08:59 Dose: 6 unit Documented by: Insulin Human Lispro (Humalog) 10 unit SUB-Q AC [facility] Latanoprost (Latanoprost 0.005%) 1 drops OU QPM [facility] Potassium Chloride (Potassium Chloride) 20 meq PO QDAY [facility] Sodium Chloride (Sodium Chloride Flush Syringe 10 Ml) 10 ml IV BID [facility] Last Admin: 04/20/20 22:30 Dose: 10 ml Documented by: Sodium Chloride (Sodium Chloride Flush Syringe 10 Ml) 10 ml IV PRN PRN PRN Reason: LINE FLUSH Tramadol HCl (Ultram) 50 mg PO Q4HR PRN PRN Reason: PAIN Physical Examination Vital signs: Vital Signs Pulse Resp Pulse Ox 98 H 32 H 96 04/20/20 14:51 04/20/20 14:51 04/20/20 14:51 General appearance: appears uncomfortable, other (AWKE, DIAPHORETIC, MONOSYLLABIC WORDS) Eyes: non-icteric ENT: oropharynx dry Neck: supple, no lymphadenopathy, no JVD Effort: mildly labored Ascultation: Bilateral: diminished breath sounds, rhonchi Cardiovascular: regular rate and rhythm, other (s1,s2) Gastrointestinal: normoactive bowel sounds, soft, non-tender, other (Mild distension) Integumentary: normal Extremities: no cyanosis, no edema, pulses normal, no ischemia or petechiae non-focal exam, pupils equal and round, motor strength normal and, other affect normal Results - Laboratory Findings CBC and BMP: 04/23/20 07:31 04/23/20 07:31 ABG ABG pH 7.384 (7.320-7.450) 04/20/20 20:50 POC ABG pCO2 30.5 mmHg (32.0-48.0) L 04/20/20 20:50 POC ABG HCO3 17.8 04/20/20 20:50 Abnormal lab findings: Abnormal Labs 04/20/20 04/20/20 04/20/20 15:06 15:06 15:06 WBC 33.4 H RBC 3.47 L Hgb 10.4 L Hct 32.1 L RDW 15.5 H Plt Count 106 L Seg Neuts % (Manual) 82.0 H Lymphocytes % (Manual) 6.0 L Monocytes % (Manual) 12.0 H Seg Neutrophils # Man 27.4 H Monocytes # (Manual) 4.0 H POC ABG pCO2 ABG Hemoglobin ABG Oxyhemoglobin ABG Sodium ABG Potassium ABG Glucose Carboxyhemoglobin Sodium 129 L Potassium Chloride 97.2 L Carbon Dioxide 20 L BUN 32 H Creatinine 2.0 H Glucose 318 H POC Glucose Lactic Acid 2.50 H* Calcium 7.9 L AST 69 H ALT 87 H Troponin T 0.047 H Total Protein 5.6 L Albumin 1.8 L HDL Cholesterol 25 L Arterial Blood Glucose Arterial Blood Ionized Calcium 04/20/20 04/20/20 04/21/20 16:49 20:50 08:06 WBC RBC Hgb Hct RDW Plt Count Seg Neuts % (Manual) Lymphocytes % (Manual) Monocytes % (Manual) Seg Neutrophils # Man Monocytes # (Manual) POC ABG pCO2 30.5 L ABG Hemoglobin 10.9 L ABG Oxyhemoglobin 98.6 H ABG Sodium 127.7 L ABG Potassium 5.1 H ABG Glucose 342 H Carboxyhemoglobin 0.2 L Sodium Potassium Chloride Carbon Dioxide BUN Creatinine Glucose POC Glucose 339 H Lactic Acid 2.70 H* Calcium AST ALT Troponin T Total Protein Albumin HDL Cholesterol Arterial Blood Glucose 342 H Arterial Blood Ionized Calcium 4.3 L 04/21/20 04/21/20 04/21/20 10:14 10:14 12:18 WBC 23.0 H RBC 3.50 L Hgb 10.4 L Hct 31.6 L RDW Plt Count 101 L Seg Neuts % (Manual) Lymphocytes % (Manual) Monocytes % (Manual) Seg Neutrophils # Man Monocytes # (Manual) POC ABG pCO2 ABG Hemoglobin ABG Oxyhemoglobin ABG Sodium ABG Potassium ABG Glucose Carboxyhemoglobin Sodium 129 L Potassium 5.5 H Chloride Carbon Dioxide 16 L BUN 51 H Creatinine 2.1 H Glucose 383 H POC Glucose 343 H Lactic Acid Calcium 8.1 L AST ALT Troponin T Total Protein Albumin HDL Cholesterol Arterial Blood Glucose Arterial Blood Ionized Calcium - Diagnostic Findings Chest x-ray: image reviewed Assessment and Plan Severe Sepsis Acute respiratory failure Acute toxic-metabolic encephalopathy Acute kidney injury Severe metabolic acidosis COVID-19 infection Multifocal pneumonia Morbid obesity h/o Heart failure h/o CAD (coronary artery disease) Diabetes DVT prophylaxis -Sepsis protocol: CBC, CMP, chest x-ray, urinalysis, IV antibiotic therapy, monitor urine output every shift, monitor fluid balance, serial lactic acid level, blood cultures, maintain mean arterial blood pressure greater than or equal to 65. IV pressor support as clinically indicated -BIPAP, follow up on ABG -Broad spectrum antibiotics, renal dosing -Avoid nephrotoxins -Place Velez catheter for this critically ill patient with acute renal failure requiring accurate intake and output -NPO for now, may need NGT for enteric nutrition if no improvement with his respiratory status -ABG in am and as clinically indicated -CXR as clinically indicated -CBC, BMP follow up -Chronic home medications as clinically indicated -Transfer to ICU once bed is available -Isolation for COVID per facility protocol -Treatment for COVID per protocol/ID recommendations -Accuchecks, glycemic control. Avoid hypoglycemia -Needs renal consult,ID consult -All other care per attending and other consultants. CONDITION: CRITICAL PROGNOSIS: GUARDED CODE STATUS: FULL CODE - The high probability of a clinically significant, sudden or life threatening deterioration of the [ respiratory, renal, infectious disease] system(s) required my full and direct attention, intervention and personal management. The aggregate critical care time was [35] minutes. This time is in addition to time spent performing reported procedures but includes the following: [x] Data Review and interpretation [x] Patient assessment and monitoring of vital signs [x] Documentation [x] Medication orders and management
[2020-04-21] MEDS: APIXABAN 5 MG TAB PO SCH (12:30)
[2020-04-21 13:20] LABS: Basophils % (Manual) 0 % (0.0-1.8); Eosinophils % (Manual) 0 % (0.0-4.3)
[2020-04-21] MEDS ORDERED: HYDROmorphone 2 MG/1 ML INJ ONE (13:20)
[2020-04-21 13:22] LABS: Band Neutrophils # (Manual) 2.3 K/mm3; Platelet Estimate Consistent w Auto; RBC Morphology Normal; Total Cells Counted 100
[2020-04-21] MEDS ORDERED: CEFEPIME/NS 2 GM/100 ML 2 GM/100 ML BAG IV ONE (14:26)
[2020-04-21 15:02] LABS: Bacteria,Urine 1+ /HPF (Negative); Bilirubin,Urine NEG (Negative); Blood,Urine LG (Negative); Mucus,Urine FEW /HPF
[2020-04-21 15:03] LABS: Color,Urine Yellow (Yellow); RBC,Urine > 182.0 /HPF (0.0-6.0); WBC,Urine > 182.0 /HPF (0.0-6.0)
[2020-04-21 15:22] LABS: ABG Base Excess -7.5 mmol/L (-2.0-3.0); ABG HCO3 19.8 mmol/L (20.0-26.0); ABG Methemoglobin 0.6 % (0.0-1.5); ABG Oxygen Saturation 98.7 % (95.0-99.0); ABG PCO2 45.8 mm Hg; ABG PH 7.253 pH Units (7.350-7.450); ABG PO2 155.8 mm Hg (80.0-90.0)
[2020-04-21] MEDS ORDERED: CEFEPIME/NS 1 GM/100 ML 1 GM/100 ML BAG IV SCH (16:00)
[2020-04-21] MEDS ORDERED: VANCOMYCIN 1,250 MG in SODIUM CHLORIDE 0.9% 250ML 250 ML IV SCH (16:00)
[2020-04-21] MEDS: CEFEPIME/NS 2 GM/100 ML 2 GM/100 ML BAG IV SCH (16:15)
[2020-04-21] MEDS ORDERED: NON-FORMULARY EACH (Bimatoprost [Lumigan 0.01%] 1 DROP) OP SCH (18:00)
[2020-04-21] MEDS: LATANOPROST 0.005% OPHTH SOLN 2.5 ML OU SCH (18:33)
[2020-04-21] MEDS ORDERED: diphenhydrAMINE 50 MG/ML VIAL ONE (23:36)
[2020-04-22] MEDS ORDERED: INSULIN LISPRO 100 UNIT/ML VIAL 3 mL SUB-Q ONE ×4 (00:55→17:51)
[2020-04-22] MEDS: INSULIN LISPRO 100 UNIT/ML VIAL 3 mL SUB-Q SCH ×8 (00:58→22:00)
[2020-04-22] MEDS: INSULIN GLARGINE 100 UNITS/ML SUB-Q SCH ×3 (00:58→22:00)
[2020-04-22] MEDS: APIXABAN 5 MG TAB PO SCH ×3 (00:59→22:00)
[2020-04-22 01:29] LABS: ABG Base Excess -6.2 mmol/L (-2.0-3.0); ABG HCO3 19.3 mmol/L (20.0-26.0); ABG Methemoglobin 0.5 % (0.0-1.5); ABG Oxygen Saturation 98.2 % (95.0-99.0); ABG PCO2 37.9 mm Hg; ABG PH 7.324 pH Units (7.350-7.450)
[2020-04-22 05:17] LABS: Hematocrit 31.7 % (35.5-45.6); Hemoglobin 10.4 gm/dl (11.8-15.2); Mean Corpuscular HGB Conc 33 % (32-34); Mean Corpuscular Volume 91 fl (84-94); Platelet Count 101 K/mm3 (140-440); Red Blood Count 3.47 M/mm3 (3.65-5.03); Red Cell Distribution Width 15.4 % (13.2-15.2)
[2020-04-22 05:40] LABS: Calcium 7.9 mg/dL (8.4-10.2)
[2020-04-22] MEDS ORDERED: FUROSEMIDE 20 MG/2 ML INJ ONE (06:56)
[2020-04-22] MEDS: FUROSEMIDE 20 MG/2 ML INJ IV SCH (07:02)
[2020-04-22 07:10] LABS: Total Cells Counted 100
[2020-04-22 07:11] LABS: Anisocytosis 1+; Band Neutrophils # (Manual) 0.2 K/mm3; Basophils % (Manual) 0 % (0.0-1.8); Eosinophils % (Manual) 0 % (0.0-4.3); Platelet Estimate Consistent w Auto
[2020-04-22] MEDS ORDERED: POTASSIUM CHLORIDE ER 20 MEQ TAB PO ONE (08:21)
[2020-04-22] MEDS ORDERED: POTASSIUM CHLORIDE 20 MEQ PACKET PO SCH (10:00)
[2020-04-22] MEDS ORDERED: SODIUM POLYSTYRENE 15 GM/60 ML ORAL LIQD PO ONE (10:13)
--- NOTE | 2020-04-22 10:17 | Progress Note ---
Assessment and Plan Assessment and plan: (1) Sepsis Current Visit: Yes Status: Acute Plan to address problem: Sepsis protocol: CBC, CMP, chest x-ray, urinalysis, IV antibiotic therapy, monitor urine output every shift, monitor fluid balance, serial lactic acid level, blood cultures, maintain mean arterial blood pressure greater than or equal to 65. IV pressor support as clinically indicated. The high probability of a clinically significant, sudden or life threatening deterioration of the [cardiac, neuro, respiratory, renal, infectious disease] system(s) required my full and direct attention, intervention and personal management. The aggregate critical care time was [90] minutes. This time is in addition to time spent performing reported procedures but includes the following: [x] Data Review and interpretation [x] Patient assessment and monitoring of vital signs [x] Documentation [x] Medication orders and management (2) Acute respiratory failure Current Visit: Yes Status: Acute Qualifiers: Respiratory failure complication: hypoxia Qualified Code(s): J96.01 - Acute respiratory failure with hypoxia Plan to address problem: Supplemental oxygen, nebulizer therapy, pulse oximetry, noninvasive positive pressure ventilation, pulmonary toilet. (3) Acute kidney injury Current Visit: Yes Status: Acute Plan to address problem: Monitor urine output every shift, BMP, repeat BMP in a.m. Monitor fluid balance due to coronavirus infection. Care is taken not to maintain positive fluid balance to precipitate pulmonary edema. (4) COVID-19 Current Visit: Yes Status: Acute Plan to address problem: Coronavirus infection: Contact precautions, isolation precautions, IV antibiotic therapy, IV steroid therapy, supportive care. (5) Multifocal pneumonia Current Visit: Yes Status: Acute Plan to address problem: Pneumonia protocol: IV antibiotic therapy, chest x-ray, CBC, BMP, supplemental oxygen, pulse oximetry, blood cultures. (6) Heart failure Current Visit: No Status: Acute Qualifiers: Heart failure chronicity: chronic Plan to address problem: Monitor urine output every shift, strict I's/O, afterload reduction, supplemental oxygen, diuresis as clinically indicated. (7) CAD (coronary artery disease) Current Visit: No Status: Chronic Qualifiers: Associated angina: without angina Plan to address problem: Supportive care, risk factor reduction, continue antiplatelet therapy. (8) Diabetes Current Visit: No Status: Chronic Qualifiers: Diabetes mellitus type: type 2 Plan to address problem: Sliding-scale insulin, Accu-Chek, hypoglycemia protocol, diet when alert and awake only (9) DVT prophylaxis Current Visit: No Status: Acute Plan to address problem: SCD to bilateral lower extremities while in bed, prophylactic anticoagulation. (10) Advance care planning Current Visit: Yes Status: Acute Plan to address problem: Full code 04/21/2020 -Patient is on IV antibiotics for pneumonia, Covid test is pending. Pulmonary consult appreciated. 04/22/2020 -Patient is on BiPAP, is on IV antibiotics for pneumonia. WBC is trending down and still high. ID consult placed. Pulmonary consult placed. History Interval history: Patient was seen and evaluated this morning Patient said he is feeling short of breath Patient is on BiPAP Hospitalist Physical - Physical exam Narrative exam: Patient is on BiPAP The patient is morbidly obese. Vital signs as documented. Head exam is unremarkable. No scleral icterus . Neck is without jugular venous distension, thyromegaly, or carotid bruits. Lungs are clear to auscultation. Cardiac exam reveals regular rate and Rhythm. Abdominal exam reveals normal bowel sounds, nontender, no organomegaly. Extremities are nonedematous and both femoral and pedal pulses are normal. EDITORIAL DIRECTOR: Alert and oriented 3. No focal weakness. - Constitutional Vitals: Temp Pulse Resp BP Pulse Ox 99.2 F 76 23 111/46 99 04/20/20 15:19 04/22/20 08:00 04/22/20 08:00 04/22/20 08:00 04/22/20 08:00 General appearance: Present: severe distress HEART Score - HEART Score Troponin: Troponin T 0.047 ng/mL (0.00-0.029) H 04/20/20 15:06 Results - Labs CBC & Chem 7: 04/22/20 04:51 04/22/20 04:51 Labs: Laboratory Last Values WBC 19.1 K/mm3 (4.5-11.0) H 04/22/20 04:51 RBC 3.47 M/mm3 (3.65-5.03) L 04/22/20 04:51 Hgb 10.4 gm/dl (11.8-15.2) L 04/22/20 04:51 Hct 31.7 % (35.5-45.6) L 04/22/20 04:51 MCV 91 fl (84-94) 04/22/20 04:51 MCH 30 pg (28-32) 04/22/20 04:51 MCHC 33 % (32-34) 04/22/20 04:51 RDW 15.4 % (13.2-15.2) H 04/22/20 04:51 Plt Count 101 K/mm3 (140-440) L 04/22/20 04:51 Add Manual Diff Complete 04/22/20 04:51 Total Counted 100 04/22/20 04:51 Seg Neuts % (Manual) 83.0 % (40.0-70.0) H 04/22/20 04:51 Band Neutrophils % 1.0 % 04/22/20 04:51 Lymphocytes % (Manual) 8.0 % (13.4-35.0) L 04/22/20 04:51 Reactive Lymphs % (Man) 0 % 04/22/20 04:51 Monocytes % (Manual) 8.0 % (0.0-7.3) H 04/22/20 04:51 Eosinophils % (Manual) 0 % (0.0-4.3) 04/22/20 04:51 Basophils % (Manual) 0 % (0.0-1.8) 04/22/20 04:51 Metamyelocytes % 0 % 04/22/20 04:51 Myelocytes % 0 % 04/22/20 04:51 Promyelocytes % 0 % 04/22/20 04:51 Blast Cells % 0 % 04/22/20 04:51 Nucleated RBC % Not Reportable 04/22/20 04:51 Seg Neutrophils # Man 15.9 K/mm3 (1.8-7.7) H 04/22/20 04:51 Band Neutrophils # 0.2 K/mm3 04/22/20 04:51 Lymphocytes # (Manual) 1.5 K/mm3 (1.2-5.4) 04/22/20 04:51 Abs React Lymphs (Man) 0.0 K/mm3 04/22/20 04:51 Monocytes # (Manual) 1.5 K/mm3 (0.0-0.8) H 04/22/20 04:51 Eosinophils # (Manual) 0.0 K/mm3 (0.0-0.4) 04/22/20 04:51 Basophils # (Manual) 0.0 K/mm3 (0.0-0.1) 04/22/20 04:51 Metamyelocytes # 0.0 K/mm3 04/22/20 04:51 Myelocytes # 0.0 K/mm3 04/22/20 04:51 Promyelocytes # 0.0 K/mm3 04/22/20 04:51 Blast Cells # 0.0 K/mm3 04/22/20 04:51 WBC Morphology Not Reportable 04/22/20 04:51 Hypersegmented Neuts Not Reportable 04/22/20 04:51 Hyposegmented Neuts Not Reportable 04/22/20 04:51 Hypogranular Neuts Not Reportable 04/22/20 04:51 Smudge Cells Not Reportable 04/22/20 04:51 Toxic Granulation Not Reportable 04/22/20 04:51 Toxic Vacuolation Not Reportable 04/22/20 04:51 Dohle Bodies Not Reportable 04/22/20 04:51 Pelger-Huet Anomaly Not Reportable 04/22/20 04:51 Yane Rods Not Reportable 04/22/20 04:51 Platelet Estimate Consistent w auto 04/22/20 04:51 Clumped Platelets Not Reportable 04/22/20 04:51 Plt Clumps, EDTA Not Reportable 04/22/20 04:51 Large Platelets Not Reportable 04/22/20 04:51 Giant Platelets Not Reportable 04/22/20 04:51 Platelet Satelliting Not Reportable 04/22/20 04:51 Plt Morphology Comment Not Reportable 04/22/20 04:51 RBC Morphology Not Reportable 04/22/20 04:51 Dimorphic RBCs Not Reportable 04/22/20 04:51 Polychromasia Not Reportable 04/22/20 04:51 Hypochromasia Not Reportable 04/22/20 04:51 Poikilocytosis Not Reportable 04/22/20 04:51 Anisocytosis 1+ 04/22/20 04:51 Microcytosis Not Reportable 04/22/20 04:51 Macrocytosis Not Reportable 04/22/20 04:51 Spherocytes Not Reportable 04/22/20 04:51 Pappenheimer Bodies Not Reportable 04/22/20 04:51 Sickle Cells Not Reportable 04/22/20 04:51 Target Cells Not Reportable 04/22/20 04:51 Tear Drop Cells Not Reportable 04/22/20 04:51 Ovalocytes Not Reportable 04/22/20 04:51 Helmet Cells Not Reportable 04/22/20 04:51 Dial-Dale Bodies Not Reportable 04/22/20 04:51 [place] Rings Not Reportable 04/22/20 04:51 Bijal Cells Not Reportable 04/22/20 04:51 Bite Cells Not Reportable 04/22/20 04:51 Crenated Cell Not Reportable 04/22/20 04:51 Elliptocytes Not Reportable 04/22/20 04:51 Acanthocytes (Spur) Not Reportable 04/22/20 04:51 Rouleaux Not Reportable 04/22/20 04:51 Hemoglobin C Crystals Not Reportable 04/22/20 04:51 Schistocytes Not Reportable 04/22/20 04:51 Malaria parasites Not Reportable 04/22/20 04:51 Carlos Bodies Not Reportable 04/22/20 04:51 Hem Pathologist Commnt No 04/22/20 04:51 ABG pH 7.324 pH Units (7.350-7.450) L 04/22/20 12:50 POC ABG pCO2 30.5 mmHg (32.0-48.0) L 04/20/20 20:50 ABG pCO2 37.9 mm Hg 04/22/20 12:50 ABG pO2 122.0 mm Hg (80.0-90.0) H 04/22/20 12:50 POC ABG HCO3 17.8 04/20/20 20:50 ABG HCO3 19.3 mmol/L (20.0-26.0) L 04/22/20 12:50 ABG O2 Saturation 98.2 % (95.0-99.0) 04/22/20 12:50 ABG O2 Content 13.9 (0.0-44) 04/22/20 12:50 POC ABG Base Excess -6.2 04/20/20 20:50 ABG Base Excess -6.2 mmol/L (-2.0-3.0) L 04/22/20 12:50 ABG Hemoglobin 10.1 gm/dl (14.0-18.0) L 04/22/20 12:50 ABG Oxyhemoglobin 98.6 (94-98) H 04/20/20 20:50 ABG Carboxyhemoglobin 1.1 % (0.0-5.0) 04/22/20 12:50 ABG Methemoglobin 0.5 % (0.0-1.5) 04/22/20 12:50 ABG Sodium 127.7 mmol/L (136.0-145.0) L 04/20/20 20:50 ABG Potassium 5.1 mmol/L (3.40-4.50) H 04/20/20 20:50 ABG Chloride 101.0 mmol/L (98-107) 04/20/20 20:50 ABG Glucose 342 mg/dL (65-95) H 04/20/20 20:50 Oxyhemoglobin 96.5 % (95.0-99.0) 04/22/20 12:50 Carboxyhemoglobin 0.2 (0.5-1.5) L 04/20/20 20:50 FiO2 25 % 04/22/20 12:50 Sodium 133 mmol/L (137-145) L 04/22/20 04:51 Potassium 5.4 mmol/L (3.6-5.0) H 04/22/20 04:51 Chloride 97.8 mmol/L (98-107) L 04/22/20 04:51 Carbon Dioxide 19 mmol/L (22-30) L 04/22/20 04:51 Anion Gap 22 mmol/L 04/22/20 04:51 BUN 70 mg/dL (9-20) H 04/22/20 04:51 Creatinine 3.0 mg/dL (0.8-1.3) H 04/22/20 04:51 Estimated GFR 24 ml/min 04/22/20 04:51 BUN/Creatinine Ratio 23 % 04/22/20 04:51 Glucose 356 mg/dL (75-100) H 04/22/20 04:51 POC Glucose 339 mg/dL (70-105) H 04/22/20 07:58 Lactic Acid 1.80 mmol/L (0.7-2.0) 04/21/20 09:04 Calcium 7.9 mg/dL (8.4-10.2) L 04/22/20 04:51 Total Bilirubin 1.10 mg/dL (0.1-1.2) 04/20/20 15:06 AST 69 units/L (5-40) H 04/20/20 15:06 ALT 87 units/L (7-56) H 04/20/20 15:06 Alkaline Phosphatase 94 units/L (35-129) 04/20/20 15:06 Troponin T 0.047 ng/mL (0.00-0.029) H 04/20/20 15:06 Total Protein 5.6 g/dL (6.3-8.2) L 04/20/20 15:06 Albumin 1.8 g/dL (3.9-5) L 04/20/20 15:06 Albumin/Globulin Ratio 0.5 % 04/20/20 15:06 Triglycerides 127 mg/dL (2-149) 04/20/20 15:06 Cholesterol 124 mg/dL (50-199) 04/20/20 15:06 LDL Cholesterol Direct 71 mg/dL (50-130) 04/20/20 15:06 HDL Cholesterol 25 mg/dL (40-59) L 04/20/20 15:06 Cholesterol/HDL Ratio 4.96 % 04/20/20 15:06 Arterial Blood Glucose 342 mg/dL (65-95) H 04/20/20 20:50 Arterial Blood Ionized Calcium 4.3 mg/dL (4.6-5.3) L 04/20/20 20:50 Urine Color Yellow (Yellow) 04/21/20 14:51 Urine Turbidity Cloudy (Clear) 04/21/20 14:51 Urine pH 5.0 (5.0-7.0) 04/21/20 14:51 Ur Specific [place] 1.017 (1.003-1.030) 04/21/20 14:51 Urine Protein 100 mg/dl mg/dL (Negative) 04/21/20 14:51 Urine Glucose (UA) 50 mg/dL (Negative) 04/21/20 14:51 Urine Ketones Neg mg/dL (Negative) 04/21/20 14:51 Urine Blood Lg (Negative) 04/21/20 14:51 Urine Nitrite Neg (Negative) 04/21/20 14:51 Urine Bilirubin Neg (Negative) 04/21/20 14:51 Urine Urobilinogen 2.0 mg/dL (<2.0) 04/21/20 14:51 Ur Leukocyte Esterase Lg (Negative) 04/21/20 14:51 Urine WBC (Auto) > 182.0 /HPF (0.0-6.0) H 04/21/20 14:51 Urine RBC (Auto) > 182.0 /HPF (0.0-6.0) 04/21/20 14:51 Urine Bacteria (Auto) 1+ /HPF (Negative) 04/21/20 14:51 Urine WBC Clumps 3+ /HPF 04/21/20 14:51 Urine Mucus Few /HPF 04/21/20 14:51 Random Vancomycin 6.8 ug/mL (0-40.0) 04/22/20 04:51 Microbiology: Microbiology 04/20/20 15:09 Peripheral/Venous Blood Culture - Preliminary NO GROWTH AFTER 24 HOURS 04/20/20 15:06 Peripheral/Venous Blood Culture - Preliminary NO GROWTH AFTER 24 HOURS Velez/IV: IV Catheter Type [Right INT / Saline Lock Antecubital] Active Medications - Current Medications Current Medications: Generic Name Dose Route Start Last Admin Trade Name Freq PRN Reason Stop Dose Admin Acetaminophen 650 mg 04/20/20 18:15 Tylenol PO Q6H PRN Pain, Mild (1-3) Albuterol 2.5 mg 04/20/20 18:15 Proventil IH Q3HRT PRN Shortness Of Breath Apixaban 5 mg 04/20/20 22:00 04/22/20 00:59 Eliquis PO 5 mg BID NEFTALI Administration Protocol Colchicine 0.6 mg 04/23/20 10:00 Colchicine PO QOD NEFTALI Dextrose 50 ml 04/20/20 18:21 D50w (25gm) Syringe IV Q30MIN PRN Hypoglycemia Protocol Furosemide 20 mg 04/21/20 06:00 04/22/20 07:02 Lasix IV 20 mg DAILY@0600 NEFTALI Administration Hydromorphone HCl 0.25 mg 04/20/20 18:15 04/21/20 23:52 Dilaudid IV 0.25 mg Q4H PRN Administration Pain, Moderate (4-6) Cefepime HCl 2 gm in 100 mls @ 200 mls/hr 04/21/20 14:00 04/21/20 16:15 Cefepime/Ns 2 Gm/100 Ml IV 200 mls/hr Q24HR NEFTALI Administration Insulin Glargine 25 units 04/21/20 22:00 04/22/20 00:58 Lantus SUB-Q 25 units QHS NEFTALI Administration Insulin Glargine 30 units 04/22/20 08:00 04/22/20 08:43 Lantus SUB-Q 30 units QAMDIAB NEFTALI Administration Insulin Human Lispro 0 unit 04/20/20 22:00 04/22/20 08:42 Humalog SUB-Q 6 unit ACHS NEFTALI Administration Protocol Insulin Human Lispro 10 unit 04/21/20 12:00 04/22/20 08:43 Humalog SUB-Q 10 unit AC NEFTALI Administration Latanoprost 1 drops 04/21/20 18:00 04/21/20 18:33 Latanoprost 0.005% OU 1 drops QPM NEFTALI Administration Potassium Chloride 20 meq 04/22/20 10:00 Potassium Chloride PO QDAY NEFTALI Sodium Chloride 10 ml 04/20/20 22:00 04/22/20 07:47 Sodium Chloride Flush Syringe 10 Ml IV Not Given BID NEFTALI Sodium Chloride 10 ml 04/20/20 18:15 Sodium Chloride Flush Syringe 10 Ml IV PRN PRN LINE FLUSH Tramadol HCl 50 mg 04/20/20 18:20 Ultram PO Q4HR PRN PAIN
[2020-04-22] MEDS ORDERED: APIXABAN 5 MG TAB ONE ×2 (10:35→23:53)
[2020-04-22] MEDS ORDERED: CEFEPIME/NS 2 GM/100 ML 2 GM/100 ML BAG IV ONE (10:49)
[2020-04-22] MEDS: CEFEPIME/NS 2 GM/100 ML 2 GM/100 ML BAG IV SCH (10:54)
--- NOTE | 2020-04-22 11:44 | Consultation ---
History of Present Illness - Reason for Consult Consult date: 04/22/20 - History of Present Illness 84-year-old male who lives in a halfway facility and was diagnosed COVID-19 1 week prior to admission with a known past medical history of diabetes, hypertension, CAD, CHF, chronic Velez catheter was brought to the hospital due to confusion and respiratory distress. The staff at his facility noted that he had worsening shortness of breath and 1 day prior to admission with associated increased work of breathing. EMS presented to the scene and found to be hypoxic and he was brought to the hospital. Afebrile, white count is 19. Cultures no growth so far. Covid testing pending currently on cefepime. He is receiving BiPAP Imaging personally viewed: Chest x-ray: Subtle bilateral airspace opacities consistent with history of COVID-19. Past History Past Medical History: acute [place], CAD, diabetes, heart failure, hypertension, other (See HPI) Past Surgical History: Other (Cardiac stent placement) Social history: . denies: smoking, alcohol abuse Family history: diabetes, hypertension Medications and Allergies Allergies Allergy/AdvReac Type Severity Reaction Status Date / Time No Known Allergies Allergy Unverified 01/06/18 00:20 Home Medications Medication Instructions Recorded Confirmed Last Taken Type Bimatoprost [Lumigan 0.01%] 1 drop OP QPM 01/06/18 04/20/20 Unknown History Colchicine 0.6 mg PO QDAY 01/06/18 04/20/20 Unknown History Apixaban [Eliquis] 5 mg PO BID #60 tablet 04/11/20 04/20/20 Unknown Rx Insulin Glargine [Lantus VIAL] 25 units SUB-Q QHS units 04/11/20 04/20/20 Unknown Rx Insulin Glargine [Lantus VIAL] 30 units SUB-Q QAMDIAB units 04/11/20 04/20/20 Unknown Rx Insulin Lispro [Humalog] 0 unit SUB-Q ACHS vial 04/11/20 04/20/20 Unknown Rx Insulin Lispro [Humalog] 10 unit SUB-Q AC vial 04/11/20 04/20/20 Unknown Rx Valsartan [Diovan] 160 mg PO DAILY tablet 04/11/20 04/20/20 Unknown Rx amLODIPine 10 mg PO QDAY tablet 04/11/20 04/20/20 Unknown Rx carvediloL [Coreg] 25 mg PO BID tablet 04/11/20 04/20/20 Unknown Rx hydrALAZINE [Apresoline TAB] 50 mg PO Q12HR tablet 04/11/20 04/20/20 Unknown Rx Acetaminophen [Tylenol] 2 tab PO Q6H PRN 04/20/20 04/20/20 Unknown History Furosemide [Lasix TAB] 40 mg PO QDAY 04/20/20 04/20/20 Unknown History Potassium 20 meq PO DAILY 04/20/20 04/20/20 Unknown History cephALEXin [Keflex] 500 mg PO QID 04/20/20 04/20/20 Unknown History traMADoL [Ultram] 50 mg PO Q4HR PRN 04/20/20 04/20/20 Unknown History Active Meds: Active Medications Acetaminophen (Tylenol) 650 mg PO Q6H PRN PRN Reason: Pain, Mild (1-3) Albuterol (Proventil) 2.5 mg IH Q3HRT PRN PRN Reason: Shortness Of Breath Apixaban (Eliquis) 5 mg PO BID [facility]; Protocol Last Admin: 04/22/20 10:44 Dose: 5 mg Documented by: Colchicine (Colchicine) 0.6 mg PO QOD [facility] Dextrose (D50w (25gm) Syringe) 50 ml IV Q30MIN PRN; Protocol PRN Reason: Hypoglycemia Furosemide (Lasix) 20 mg IV DAILY@0600 [facility] Last Admin: 04/22/20 07:02 Dose: 20 mg Documented by: Hydromorphone HCl (Dilaudid) 0.25 mg IV Q4H PRN PRN Reason: Pain, Moderate (4-6) Last Admin: 04/21/20 23:52 Dose: 0.25 mg Documented by: Cefepime HCl (Cefepime/Ns 2 Gm/100 Ml) 2 gm in 100 mls @ 200 mls/hr IV Q24HR [facility] Last Admin: 04/22/20 10:54 Dose: 200 mls/hr Documented by: Insulin Glargine (Lantus) 25 units SUB-Q QHS [facility] Last Admin: 04/22/20 00:58 Dose: 25 units Documented by: Insulin [facility] ([facility]antus) [facility] Last Admin: 04/22/20 08:43 Dose: 30 units Documented by: Insulin Human Lispro (Humalog) 0 unit SUB-Q ACHS [facility]; Protocol Last Admin: 04/22/20 08:42 Dose: 6 unit Documented by: Insulin Human Lispro (Humalog) 10 unit SUB-Q AC [facility] Last Admin: 04/22/20 08:43 Dose: 10 unit Documented by: Latanoprost (Latanoprost 0.005%) 1 drops OU QPM [facility] Last Admin: 04/21/20 18:33 Dose: 1 drops Documented by: Potassium Chloride (Potassium Chloride) 20 meq PO QDAY [facility] Last Admin: 04/22/20 10:44 Dose: 20 meq Documented by: Sodium Chloride (Sodium Chloride Flush Syringe 10 Ml) 10 ml IV BID [facility] Last Admin: 04/22/20 10:56 Dose: 10 ml Documented by: Sodium Chloride (Sodium Chloride Flush Syringe 10 Ml) 10 ml IV PRN PRN PRN Reason: LINE FLUSH Tramadol HCl (Ultram) 50 mg PO Q4HR PRN PRN Reason: PAIN Review of Systems ROS unobtainable: due to mental status Physical Examination - Physical Exam Narrative exam: Physical exam deferred due to PPE conservation strategy. Please refer to primary team's note. - Constitutional Vitals: Vital Signs Temp Pulse Resp BP Pulse Ox 99.2 F 76 23 111/46 99 04/20/20 15:19 04/22/20 08:00 04/22/20 08:00 04/22/20 08:00 04/22/20 08:00 Results - Labs CBC & Chem 7: 04/22/20 04:51 04/22/20 04:51 Labs: Abnormal lab results 04/21/20 04/21/20 04/21/20 Range/Units 10:14 10:14 12:18 WBC (4.5-11.0) K/mm3 RBC (3.65-5.03) M/mm3 Hgb (11.8-15.2) gm/dl Hct (35.5-45.6) % RDW (13.2-15.2) % Plt Count (140-440) K/mm3 Seg Neuts % (Manual) 85.0 H (40.0-70.0) % Lymphocytes % (Manual) 0 L (13.4-35.0) % Monocytes % (Manual) (0.0-7.3) % Seg Neutrophils # Man 19.6 H (1.8-7.7) K/mm3 Lymphocytes # (Manual) 0.0 L (1.2-5.4) K/mm3 Monocytes # (Manual) 0.9 H (0.0-0.8) K/mm3 ABG pH (7.350-7.450) pH Units ABG pO2 (80.0-90.0) mm Hg ABG HCO3 (20.0-26.0) mmol/L ABG Base Excess (-2.0-3.0) mmol/L ABG Hemoglobin (14.0-18.0) gm/dl Sodium 129 L (137-145) mmol/L Potassium 5.5 H (3.6-5.0) mmol/L Chloride (98-107) mmol/L Carbon Dioxide 16 L (22-30) mmol/L BUN 51 H (9-20) mg/dL Creatinine 2.1 H (0.8-1.3) mg/dL Glucose 383 H (75-100) mg/dL POC Glucose 343 H (70-105) mg/dL Calcium 8.1 L (8.4-10.2) mg/dL Urine WBC (Auto) (0.0-6.0) /HPF 04/21/20 04/21/20 04/21/20 Range/Units 14:37 14:51 14:58 WBC (4.5-11.0) K/mm3 RBC (3.65-5.03) M/mm3 Hgb (11.8-15.2) gm/dl Hct (35.5-45.6) % RDW (13.2-15.2) % Plt Count (140-440) K/mm3 Seg Neuts % (Manual) (40.0-70.0) % Lymphocytes % (Manual) (13.4-35.0) % Monocytes % (Manual) (0.0-7.3) % Seg Neutrophils # Man (1.8-7.7) K/mm3 Lymphocytes # (Manual) (1.2-5.4) K/mm3 Monocytes # (Manual) (0.0-0.8) K/mm3 ABG pH 7.253 L (7.350-7.450) pH Units ABG pO2 155.8 H (80.0-90.0) mm Hg ABG HCO3 19.8 L (20.0-26.0) mmol/L ABG Base Excess -7.5 L (-2.0-3.0) mmol/L ABG Hemoglobin 19.4 H (14.0-18.0) gm/dl Sodium (137-145) mmol/L Potassium (3.6-5.0) mmol/L Chloride (98-107) mmol/L Carbon Dioxide (22-30) mmol/L BUN (9-20) mg/dL Creatinine (0.8-1.3) mg/dL Glucose (75-100) mg/dL POC Glucose 359 H (70-105) mg/dL Calcium (8.4-10.2) mg/dL Urine WBC (Auto) > 182.0 H (0.0-6.0) /HPF 04/21/20 04/22/20 04/22/20 Range/Units 18:20 00:28 04:51 WBC 19.1 H (4.5-11.0) K/mm3 RBC 3.47 L (3.65-5.03) M/mm3 Hgb 10.4 L (11.8-15.2) gm/dl Hct 31.7 L (35.5-45.6) % RDW 15.4 H (13.2-15.2) % Plt Count 101 L (140-440) K/mm3 Seg Neuts % (Manual) 83.0 H (40.0-70.0) % Lymphocytes % (Manual) 8.0 L (13.4-35.0) % Monocytes % (Manual) 8.0 H (0.0-7.3) % Seg Neutrophils # Man 15.9 H (1.8-7.7) K/mm3 Lymphocytes # (Manual) (1.2-5.4) K/mm3 Monocytes # (Manual) 1.5 H (0.0-0.8) K/mm3 ABG pH (7.350-7.450) pH Units ABG pO2 (80.0-90.0) mm Hg ABG HCO3 (20.0-26.0) mmol/L ABG Base Excess (-2.0-3.0) mmol/L ABG Hemoglobin (14.0-18.0) gm/dl Sodium (137-145) mmol/L Potassium (3.6-5.0) mmol/L Chloride (98-107) mmol/L Carbon Dioxide (22-30) mmol/L BUN (9-20) mg/dL Creatinine (0.8-1.3) mg/dL Glucose (75-100) mg/dL POC Glucose 377 H 318 H (70-105) mg/dL Calcium (8.4-10.2) mg/dL Urine WBC (Auto) (0.0-6.0) /HPF 04/22/20 04/22/20 04/22/20 Range/Units 04:51 07:58 12:50 WBC (4.5-11.0) K/mm3 RBC (3.65-5.03) M/mm3 Hgb (11.8-15.2) gm/dl Hct (35.5-45.6) % RDW (13.2-15.2) % Plt Count (140-440) K/mm3 Seg Neuts % (Manual) (40.0-70.0) % Lymphocytes % (Manual) (13.4-35.0) % Monocytes % (Manual) (0.0-7.3) % Seg Neutrophils # Man (1.8-7.7) K/mm3 Lymphocytes # (Manual) (1.2-5.4) K/mm3 Monocytes # (Manual) (0.0-0.8) K/mm3 ABG pH 7.324 L (7.350-7.450) pH Units ABG pO2 122.0 H (80.0-90.0) mm Hg ABG HCO3 19.3 L (20.0-26.0) mmol/L ABG Base Excess -6.2 L (-2.0-3.0) mmol/L ABG Hemoglobin 10.1 L (14.0-18.0) gm/dl Sodium 133 L (137-145) mmol/L Potassium 5.4 H (3.6-5.0) mmol/L Chloride 97.8 L (98-107) mmol/L Carbon Dioxide 19 L (22-30) mmol/L BUN 70 H (9-20) mg/dL Creatinine 3.0 H (0.8-1.3) mg/dL Glucose 356 H (75-100) mg/dL POC Glucose 339 H (70-105) mg/dL Calcium 7.9 L (8.4-10.2) mg/dL Urine WBC (Auto) (0.0-6.0) /HPF Assessment and Plan Cultures: No growth so far A/P: 84-year-old man past medical history diabetes, hypertension, CAD, CHF, chronic Velez catheter admitted with worsening COVID-19 #Severe COVID-19 pneumonia: Patient presented with a week of symptoms, chest x- ray with diffuse bilateral infiltrates. Not a candidate for remdesivir #Acute hypoxemic respiratory failure: Likely secondary to COVID-19 infection. Currently on APAP #CKD: Renally dose antibiotics. #Pyuria: With associated blood in the urine. Patient has chronic Velez, unclear if symptomatic. Recs: -Dexamethasone 6 mg IV/PO daily for 10 days -Not a remdesivir candidate due to renal function -Continue renally dose cefepime for now -Follow-up cultures Thank you for the consult, we will continue to follow. MD [facility] O: [phone] F: [phone]
[2020-04-22] MEDS ORDERED: dexAMETHasone 4 MG/ML VIAL ONE (14:22)
[2020-04-22] MEDS: dexAMETHasone 4 MG/ML VIAL IV SCH (14:28)
--- NOTE | 2020-04-22 17:34 | Progress Note ---
Assessment and Plan Severe Sepsis Acute respiratory failure Acute toxic-metabolic encephalopathy Acute kidney injury probable secondary to ATN Severe metabolic acidosis COVID-19 infection Multifocal pneumonia Morbid obesity h/o Heart failure h/o CAD (coronary artery disease) Diabetes DVT prophylaxis -Sepsis protocol: CBC, CMP, chest x-ray, urinalysis, IV antibiotic therapy, monitor urine output every shift, monitor fluid balance, serial lactic acid lev el, blood cultures, maintain mean arterial blood pressure greater than or equal to 65. IV pressor support as clinically indicated On Cefepime. Hemodynamically normal and tolerating BIPAP -BIPAP, ABG today. -Broad spectrum antibiotics, renal dosing -Avoid nephrotoxins -Place Carnes catheter for this critically ill patient with acute renal failure requiring accurate intake and output -NPO for now, may need NGT for enteric nutrition if no improvement with his respiratory status -ABG in am and as clinically indicated -CXR as clinically indicated -CBC, BMP follow up -Chronic home medications as clinically indicated -Transfer to ICU once bed is available -Isolation for COVID per facility protocol -Treatment for COVID per protocol/ID recommendations -Accuchecks, glycemic control. Avoid hypoglycemia -Needs renal consult -All other care per attending and other consultants. CONDITION: CRITICAL PROGNOSIS: GUARDED CODE STATUS: FULL CODE - The high probability of a clinically significant, sudden or life threatening deterioration of the [ respiratory, renal, infectious disease] system(s) requ ired my full and direct attention, intervention and personal management. The aggregate critical care time was [35] minutes. This time is in addition to time spent performing reported procedures but includes the following: [x] Data Review and interpretation [x] Patient assessment and monitoring of vital signs [x] Documentation [x] Medication orders and management Subjective Date of service: 04/22/20 Interval history: Follow up for: Acute hypoxemic resp failure: COVID infection: Acute renal failure, metabolic acisosis: Sepsis secondary to Pneumonia Seen and examined with RT, in the ED. She states that he desaturates when she takes the BIPAP off but recovers quickly. Respiratory and nursing staff consulted. No fevers overnight, responsive but appears confused. No diarrhea, no vomiting Objective - Exam Narrative Exam: . Vital Signs - 12hr 04/22/20 04/22/20 04/22/20 06:00 07:00 08:00 Pulse Rate 77 80 76 Respiratory 27 H 24 23 Rate Blood Pressure 103/70 109/73 111/46 O2 Sat by Pulse 99 98 99 Oximetry 04/22/20 04/22/20 08:15 11:02 Pulse Rate 78 84 Respiratory 32 H 30 H Rate Blood Pressure 122/66 106/83 O2 Sat by Pulse 98 98 Oximetry Vitals reviewed. Remains hemodynamically normal, saturating well on BIPAP General appearance: appears uncomfortable, awake, Eyes: non-icteric ENT: oropharynx dry Neck: supple, no lymphadenopathy, no JVD Effort: mildly labored on BIPAP Ascultation: Bilateral: diminished breath sounds, rhonchi Cardiovascular: regular rate and rhythm, other (S1,S2) Gastrointestinal: normoactive bowel sounds, soft, non-tender, other (Mild d istension) Integumentary: normal, Carnes cahter with tea colored urine Extremities: no cyanosis, no edema, pulses normal, no ischemia or petechiae non-focal exam, pupils equal and round, motor strength normal and, other affect normal CBC and BMP: 04/23/20 07:31 04/23/20 07:31 ABG, PT/INR, D-dimer: ABG ABG pH 7.324 pH Units (7.350-7.450) L 04/22/20 12:50 POC ABG pCO2 30.5 mmHg (32.0-48.0) L 04/20/20 20:50 ABG pCO2 37.9 mm Hg 04/22/20 12:50 ABG pO2 122.0 mm Hg (80.0-90.0) H 04/22/20 12:50 POC ABG HCO3 17.8 04/20/20 20:50 ABG O2 Saturation 98.2 % (95.0-99.0) 04/22/20 12:50 Abnormal lab findings: Abnormal Labs 04/20/20 04/20/20 04/20/20 15:06 15:06 15:06 WBC 33.4 H RBC 3.47 L Hgb 10.4 L Hct 32.1 L RDW 15.5 H Plt Count 106 L Seg Neuts % (Manual) 82.0 H Lymphocytes % (Manual) 6.0 L Monocytes % (Manual) 12.0 H Seg Neutrophils # Man 27.4 H Lymphocytes # (Manual) Monocytes # (Manual) 4.0 H ABG pH POC ABG pCO2 ABG pO2 ABG HCO3 ABG Base Excess ABG Hemoglobin ABG Oxyhemoglobin ABG Sodium ABG Potassium ABG Glucose Carboxyhemoglobin Sodium 129 L Potassium Chloride 97.2 L Carbon Dioxide 20 L BUN 32 H Creatinine 2.0 H Glucose 318 H POC Glucose Lactic Acid 2.50 H* Calcium 7.9 L AST 69 H ALT 87 H Troponin T 0.047 H Total Protein 5.6 L Albumin 1.8 L HDL Cholesterol 25 L Arterial Blood Glucose Arterial Blood Ionized Calcium Urine WBC (Auto) 04/20/20 04/20/20 04/21/20 16:49 20:50 08:06 WBC RBC Hgb Hct RDW Plt Count Seg Neuts % (Manual) Lymphocytes % (Manual) Monocytes % (Manual) Seg Neutrophils # Man Lymphocytes # (Manual) Monocytes # (Manual) ABG pH POC ABG pCO2 30.5 L ABG pO2 ABG HCO3 ABG Base Excess ABG Hemoglobin 10.9 L ABG Oxyhemoglobin 98.6 H ABG Sodium 127.7 L ABG Potassium 5.1 H ABG Glucose 342 H Carboxyhemoglobin 0.2 L Sodium Potassium Chloride Carbon Dioxide BUN Creatinine Glucose POC Glucose 339 H Lactic Acid 2.70 H* Calcium AST ALT Troponin T Total Protein Albumin HDL Cholesterol Arterial Blood Glucose 342 H Arterial Blood Ionized Calcium 4.3 L Urine WBC (Auto) 04/21/20 04/21/20 04/21/20 10:14 10:14 12:18 WBC 23.0 H RBC 3.50 L Hgb 10.4 L Hct 31.6 L RDW Plt Count 101 L Seg Neuts % (Manual) 85.0 H Lymphocytes % (Manual) 0 L Monocytes % (Manual) Seg Neutrophils # Man 19.6 H Lymphocytes # (Manual) 0.0 L Monocytes # (Manual) 0.9 H ABG pH POC ABG pCO2 ABG pO2 ABG HCO3 ABG Base Excess ABG Hemoglobin ABG Oxyhemoglobin ABG Sodium ABG Potassium ABG Glucose Carboxyhemoglobin Sodium 129 L Potassium 5.5 H Chloride Carbon Dioxide 16 L BUN 51 H Creatinine 2.1 H Glucose 383 H POC Glucose 343 H Lactic Acid Calcium 8.1 L AST ALT Troponin T Total Protein Albumin HDL Cholesterol Arterial Blood Glucose Arterial Blood Ionized Calcium Urine WBC (Auto) 04/21/20 04/21/20 04/21/20 14:37 14:51 14:58 WBC RBC Hgb Hct RDW Plt Count Seg Neuts % (Manual) Lymphocytes % (Manual) Monocytes % (Manual) Seg Neutrophils # Man Lymphocytes # (Manual) Monocytes # (Manual) ABG pH 7.253 L POC ABG pCO2 ABG pO2 155.8 H ABG HCO3 19.8 L ABG Base Excess -7.5 L ABG Hemoglobin 19.4 H ABG Oxyhemoglobin ABG Sodium ABG Potassium ABG Glucose Carboxyhemoglobin Sodium Potassium Chloride Carbon Dioxide BUN Creatinine Glucose POC Glucose 359 H Lactic Acid Calcium AST ALT Troponin T Total Protein Albumin HDL Cholesterol Arterial Blood Glucose Arterial Blood Ionized Calcium Urine WBC (Auto) > 182.0 H 04/21/20 04/22/20 04/22/20 18:20 00:28 04:51 WBC 19.1 H RBC 3.47 L Hgb 10.4 L Hct 31.7 L RDW 15.4 H Plt Count 101 L Seg Neuts % (Manual) 83.0 H Lymphocytes % (Manual) 8.0 L Monocytes % (Manual) 8.0 H Seg Neutrophils # Man 15.9 H Lymphocytes # (Manual) Monocytes # (Manual) 1.5 H ABG pH POC ABG pCO2 ABG pO2 ABG HCO3 ABG Base Excess ABG Hemoglobin ABG Oxyhemoglobin ABG Sodium ABG Potassium ABG Glucose Carboxyhemoglobin Sodium Potassium Chloride Carbon Dioxide BUN Creatinine Glucose POC Glucose 377 H 318 H Lactic Acid Calcium AST ALT Troponin T Total Protein Albumin HDL Cholesterol Arterial Blood Glucose Arterial Blood Ionized Calcium Urine WBC (Auto) 04/22/20 04/22/20 04/22/20 04:51 07:58 12:15 WBC RBC Hgb Hct RDW Plt Count Seg Neuts % (Manual) Lymphocytes % (Manual) Monocytes % (Manual) Seg Neutrophils # Man Lymphocytes # (Manual) Monocytes # (Manual) ABG pH POC ABG pCO2 ABG pO2 ABG HCO3 ABG Base Excess ABG Hemoglobin ABG Oxyhemoglobin ABG Sodium ABG Potassium ABG Glucose Carboxyhemoglobin Sodium 133 L Potassium 5.4 H Chloride 97.8 L Carbon Dioxide 19 L BUN 70 H Creatinine 3.0 H Glucose 356 H POC Glucose 339 H 289 H Lactic Acid Calcium 7.9 L AST ALT Troponin T Total Protein Albumin HDL Cholesterol Arterial Blood Glucose Arterial Blood Ionized Calcium Urine WBC (Auto) 04/22/20 12:50 WBC RBC Hgb Hct RDW Plt Count Seg Neuts % (Manual) Lymphocytes % (Manual) Monocytes % (Manual) Seg Neutrophils # Man Lymphocytes # (Manual) Monocytes # (Manual) ABG pH 7.324 L POC ABG pCO2 ABG pO2 122.0 H ABG HCO3 19.3 L ABG Base Excess -6.2 L ABG Hemoglobin 10.1 L ABG Oxyhemoglobin ABG Sodium ABG Potassium ABG Glucose Carboxyhemoglobin Sodium Potassium Chloride Carbon Dioxide BUN Creatinine Glucose POC Glucose Lactic Acid Calcium AST ALT Troponin T Total Protein Albumin HDL Cholesterol Arterial Blood Glucose Arterial Blood Ionized Calcium Urine WBC (Auto)
[2020-04-22] MEDS: LATANOPROST 0.005% OPHTH SOLN 2.5 ML OU SCH (19:00)
[2020-04-22 22:14] LABS: ABG Base Excess -7.5 mmol/L (-2.0-3.0); ABG HCO3 16.5 mmol/L (20.0-26.0); ABG Methemoglobin 0.6 % (0.0-1.5); ABG Oxygen Saturation 98.1 % (95.0-99.0); ABG PCO2 28.8 mm Hg; ABG PH 7.376 pH Units (7.350-7.450); ABG PO2 113.5 mm Hg (80.0-90.0)
[2020-04-23] MEDS ORDERED: SODIUM CHLORIDE 0.9% 250ML 250 ML IV ONE (05:40)
[2020-04-23] MEDS ORDERED: SODIUM CHLORIDE 0.9% 250ML 250 ML IV SCH (07:45)
[2020-04-23] MEDS ORDERED: NORepinephrine/NS 4 MG-250 ML 4 MG/250 ML BAG IV SCH (08:00)
--- NOTE | 2020-04-23 08:11 | Progress Note ---
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 Patient is confused and in respiratory distress on BiPAP, recent ferraro test is pending --Sepsis; --COVID-19 infection; [facility] Repeat Covid test is pending Continue current management per protocols ID following --Multifocal pneumonia; Secondary to severe COVID-19 pneumonia Patient is on cefepime per ID Continue BiPAP, Follow cultures Follow most recent pending Covid test report --Acute hypoxic respiratory failure; Requiring BiPAP, I did O2 sats to more than 90% Intubate if no improvement Pulmonary critical following --Hypotension/possible septic shock Fluid bolus, if no improvement we will start Levophed Treat underlying sepsis --Acute kidney injury; vasomotor nephropathy Closely monitor renal function Avoid nephrotoxins Nephrology consult if needed --Type 2 diabetes mellitus; Accu-Chek sliding scale coverage ADA diet Long-acting insulin, check A1c --History of coronary artery disease status post PCI; Continue current cardiac medications Consult cardiology if needed --History of chronic systolic congestive heart failure; Ejection fraction 35 to 40% in 2018 Continue current antifailure medications --Morbid obesity; BMI 42.9 Patient needs weight reduction when medically stable --DVT prophylaxis; Patient is on Eliquis --Full CODE STATUS We will closely monitor the patient and adjust management as needed The high probability of a clinically significant, sudden or life threatening deterioration of the [cardiac, neuro, respiratory, renal, infectious disease] system(s) required my full and direct attention, intervention and personal management. The aggregate critical care time was [35] minutes. This time is in addition to time spent performing reported procedures but includes the fo llowing: [x] Data Review and interpretation [x] Patient assessment and monitoring of vital signs [x] Documentation [x] Medication orders and management Hospitalist Physical - Constitutional Vitals: Temp Pulse Resp BP Pulse Ox 98.9 F 85 16 121/50 96 04/23/20 06:22 04/23/20 04:00 04/23/20 03:51 04/23/20 06:30 04/23/20 03:51 General appearance: Present: severe distress HEART Score - HEART Score Troponin: Troponin T 0.047 ng/mL (0.00-0.029) H 04/20/20 15:06 Results - Labs CBC & Chem 7: 04/22/20 04:51 04/22/20 04:51 Labs: Laboratory Last Values WBC 19.1 K/mm3 (4.5-11.0) H 04/22/20 04:51 RBC 3.47 M/mm3 (3.65-5.03) L 04/22/20 04:51 Hgb 10.4 gm/dl (11.8-15.2) L 04/22/20 04:51 Hct 31.7 % (35.5-45.6) L 04/22/20 04:51 MCV 91 fl (84-94) 04/22/20 04:51 MCH 30 pg (28-32) 04/22/20 04:51 MCHC 33 % (32-34) 04/22/20 04:51 RDW 15.4 % (13.2-15.2) H 04/22/20 04:51 Plt Count 101 K/mm3 (140-440) L 04/22/20 04:51 Add Manual Diff Complete 04/22/20 04:51 Total Counted 100 04/22/20 04:51 Seg Neuts % (Manual) 83.0 % (40.0-70.0) H 04/22/20 04:51 Band Neutrophils % 1.0 % 04/22/20 04:51 Lymphocytes % (Manual) 8.0 % (13.4-35.0) L 04/22/20 04:51 Reactive Lymphs % (Man) 0 % 04/22/20 04:51 Monocytes % (Manual) 8.0 % (0.0-7.3) H 04/22/20 04:51 Eosinophils % (Manual) 0 % (0.0-4.3) 04/22/20 04:51 Basophils % (Manual) 0 % (0.0-1.8) 04/22/20 04:51 Metamyelocytes % 0 % 04/22/20 04:51 Myelocytes % 0 % 04/22/20 04:51 Promyelocytes % 0 % 04/22/20 04:51 Blast Cells % 0 % 04/22/20 04:51 Nucleated RBC % Not Reportable 04/22/20 04:51 Seg Neutrophils # Man 15.9 K/mm3 (1.8-7.7) H 04/22/20 04:51 Band Neutrophils # 0.2 K/mm3 04/22/20 04:51 Lymphocytes # (Manual) 1.5 K/mm3 (1.2-5.4) 04/22/20 04:51 Abs React Lymphs (Man) 0.0 K/mm3 04/22/20 04:51 Monocytes # (Manual) 1.5 K/mm3 (0.0-0.8) H 04/22/20 04:51 Eosinophils # (Manual) 0.0 K/mm3 (0.0-0.4) 04/22/20 04:51 Basophils # (Manual) 0.0 K/mm3 (0.0-0.1) 04/22/20 04:51 Metamyelocytes # 0.0 K/mm3 04/22/20 04:51 Myelocytes # 0.0 K/mm3 04/22/20 04:51 Promyelocytes # 0.0 K/mm3 04/22/20 04:51 Blast Cells # 0.0 K/mm3 04/22/20 04:51 WBC Morphology Not Reportable 04/22/20 04:51 Hypersegmented Neuts Not Reportable 04/22/20 04:51 Hyposegmented Neuts Not Reportable 04/22/20 04:51 Hypogranular Neuts Not Reportable 04/22/20 04:51 Smudge Cells Not Reportable 04/22/20 04:51 Toxic Granulation Not Reportable 04/22/20 04:51 Toxic Vacuolation Not Reportable 04/22/20 04:51 Dohle Bodies Not Reportable 04/22/20 04:51 Pelger-Huet Anomaly Not Reportable 04/22/20 04:51 Yane Rods Not Reportable 04/22/20 04:51 Platelet Estimate Consistent w auto 04/22/20 04:51 Clumped Platelets Not Reportable 04/22/20 04:51 Plt Clumps, EDTA Not Reportable 04/22/20 04:51 Large Platelets Not Reportable 04/22/20 04:51 Giant Platelets Not Reportable 04/22/20 04:51 Platelet Satelliting Not Reportable 04/22/20 04:51 Plt Morphology Comment Not Reportable 04/22/20 04:51 RBC Morphology Not Reportable 04/22/20 04:51 Dimorphic RBCs Not Reportable 04/22/20 04:51 Polychromasia Not Reportable 04/22/20 04:51 Hypochromasia Not Reportable 04/22/20 04:51 Poikilocytosis Not Reportable 04/22/20 04:51 Anisocytosis 1+ 04/22/20 04:51 Microcytosis Not Reportable 04/22/20 04:51 Macrocytosis Not Reportable 04/22/20 04:51 Spherocytes Not Reportable 04/22/20 04:51 Pappenheimer Bodies Not Reportable 04/22/20 04:51 Sickle Cells Not Reportable 04/22/20 04:51 Target Cells Not Reportable 04/22/20 04:51 Tear Drop Cells Not Reportable 04/22/20 04:51 Ovalocytes Not Reportable 04/22/20 04:51 Helmet Cells Not Reportable 04/22/20 04:51 Dial-Matewan Bodies Not Reportable 04/22/20 04:51 [employer] Rings Not Reportable 04/22/20 04:51 [place] Cells Not Reportable 04/22/20 04:51 Bite Cells Not Reportable 04/22/20 04:51 Crenated Cell Not Reportable 04/22/20 04:51 Elliptocytes Not Reportable 04/22/20 04:51 Acanthocytes (Spur) Not Reportable 04/22/20 04:51 Rouleaux Not Reportable 04/22/20 04:51 Hemoglobin C Crystals Not Reportable 04/22/20 04:51 Schistocytes Not Reportable 04/22/20 04:51 Malaria parasites Not Reportable 04/22/20 04:51 Carlos Bodies Not Reportable 04/22/20 04:51 Hem Pathologist Commnt No 04/22/20 04:51 ABG pH 7.376 pH Units (7.350-7.450) 04/22/20 22:00 POC ABG pCO2 30.5 mmHg (32.0-48.0) L 04/20/20 20:50 ABG pCO2 28.8 mm Hg 04/22/20 22:00 ABG pO2 113.5 mm Hg (80.0-90.0) H 04/22/20 22:00 POC ABG HCO3 17.8 04/20/20 20:50 ABG HCO3 16.5 mmol/L (20.0-26.0) L 04/22/20 22:00 ABG O2 Saturation 98.1 % (95.0-99.0) 04/22/20 22:00 ABG O2 Content 14.9 (0.0-44) 04/22/20 22:00 POC ABG Base Excess -6.2 04/20/20 20:50 ABG Base Excess -7.5 mmol/L (-2.0-3.0) L 04/22/20 22:00 ABG Hemoglobin 10.8 gm/dl (14.0-18.0) L 04/22/20 22:00 ABG Oxyhemoglobin 98.6 (94-98) H 04/20/20 20:50 ABG Carboxyhemoglobin 1.2 % (0.0-5.0) 04/22/20 22:00 ABG Methemoglobin 0.6 % (0.0-1.5) 04/22/20 22:00 ABG Sodium 127.7 mmol/L (136.0-145.0) L 04/20/20 20:50 ABG Potassium 5.1 mmol/L (3.40-4.50) H 04/20/20 20:50 ABG Chloride 101.0 mmol/L (98-107) 04/20/20 20:50 ABG Glucose 342 mg/dL (65-95) H 04/20/20 20:50 Oxyhemoglobin 96.4 % (95.0-99.0) 04/22/20 22:00 Carboxyhemoglobin 0.2 (0.5-1.5) L 04/20/20 20:50 FiO2 25 % 04/22/20 22:00 Sodium 133 mmol/L (137-145) L 04/22/20 04:51 Potassium 5.4 mmol/L (3.6-5.0) H 04/22/20 04:51 Chloride 97.8 mmol/L (98-107) L 04/22/20 04:51 Carbon Dioxide 19 mmol/L (22-30) L 04/22/20 04:51 Anion Gap 22 mmol/L 04/22/20 04:51 BUN 70 mg/dL (9-20) H 04/22/20 04:51 Creatinine 3.0 mg/dL (0.8-1.3) H 04/22/20 04:51 Estimated GFR 24 ml/min 04/22/20 04:51 BUN/Creatinine Ratio 23 % 04/22/20 04:51 Glucose 356 mg/dL (75-100) H 04/22/20 04:51 POC Glucose 94 mg/dL (70-105) 04/23/20 07:47 Lactic Acid 1.80 mmol/L (0.7-2.0) 04/21/20 09:04 Calcium 7.9 mg/dL (8.4-10.2) L 04/22/20 04:51 Total Bilirubin 1.10 mg/dL (0.1-1.2) 04/20/20 15:06 AST 69 units/L (5-40) H 04/20/20 15:06 ALT 87 units/L (7-56) H 04/20/20 15:06 Alkaline Phosphatase 94 units/L (35-129) 04/20/20 15:06 Troponin T 0.047 ng/mL (0.00-0.029) H 04/20/20 15:06 Total Protein 5.6 g/dL (6.3-8.2) L 04/20/20 15:06 Albumin 1.8 g/dL (3.9-5) L 04/20/20 15:06 Albumin/Globulin Ratio 0.5 % 04/20/20 15:06 Triglycerides 127 mg/dL (2-149) 04/20/20 15:06 Cholesterol 124 mg/dL (50-199) 04/20/20 15:06 LDL Cholesterol Direct 71 mg/dL (50-130) 04/20/20 15:06 HDL Cholesterol 25 mg/dL (40-59) L 04/20/20 15:06 Cholesterol/HDL Ratio 4.96 % 04/20/20 15:06 Arterial Blood Glucose 342 mg/dL (65-95) H 04/20/20 20:50 Arterial Blood Ionized Calcium 4.3 mg/dL (4.6-5.3) L 04/20/20 20:50 Urine Color Yellow (Yellow) 04/21/20 14:51 Urine Turbidity Cloudy (Clear) 04/21/20 14:51 Urine pH 5.0 (5.0-7.0) 04/21/20 14:51 Ur Specific Haworth 1.017 (1.003-1.030) 04/21/20 14:51 Urine Protein 100 mg/dl mg/dL (Negative) 04/21/20 14:51 Urine Glucose (UA) 50 mg/dL (Negative) 04/21/20 14:51 Urine Ketones Neg mg/dL (Negative) 04/21/20 14:51 Urine Blood Lg (Negative) 04/21/20 14:51 Urine Nitrite Neg (Negative) 04/21/20 14:51 Urine Bilirubin Neg (Negative) 04/21/20 14:51 Urine Urobilinogen 2.0 mg/dL (<2.0) 04/21/20 14:51 Ur Leukocyte Esterase Lg (Negative) 04/21/20 14:51 Urine WBC (Auto) > 182.0 /HPF (0.0-6.0) H 04/21/20 14:51 Urine RBC (Auto) > 182.0 /HPF (0.0-6.0) 04/21/20 14:51 Urine Bacteria (Auto) 1+ /HPF (Negative) 04/21/20 14:51 Urine WBC Clumps 3+ /HPF 04/21/20 14:51 Urine Mucus Few /HPF 04/21/20 14:51 Random Vancomycin 6.8 ug/mL (0-40.0) 04/22/20 04:51 Microbiology: Microbiology 04/20/20 15:09 Peripheral/Venous Blood Culture - Preliminary NO GROWTH AFTER 48 HOURS 04/20/20 15:06 Peripheral/Venous Blood Culture - Preliminary NO GROWTH AFTER 48 HOURS Velez/IV: Voiding Method Indwelling Catheter IV Catheter Type [Right INT / Saline Lock Antecubital] Active Medications - Current Medications Current Medications: Generic Name Dose Route Start Last Admin Trade Name Freq PRN Reason Stop Dose Admin Acetaminophen 650 mg 04/20/20 18:15 Tylenol PO Q6H PRN Pain, Mild (1-3) Albuterol 2.5 mg 04/20/20 18:15 Proventil IH Q3HRT PRN Shortness Of Breath Apixaban 5 mg 04/20/20 22:00 04/22/20 22:00 Eliquis PO 5 mg BID NEFTALI Administration Protocol Colchicine 0.6 mg 04/23/20 10:00 Colchicine PO QOD NEFTALI Dexamethasone 6 mg 04/22/20 12:30 04/22/20 14:28 Decadron IV 05/01/20 10:01 6 mg Q24HR NEFTALI Administration Dextrose 50 ml 04/20/20 18:21 D50w (25gm) Syringe IV Q30MIN PRN Hypoglycemia Protocol Furosemide 20 mg 04/21/20 06:00 04/22/20 07:02 Lasix IV 20 mg DAILY@0600 NEFTALI Administration Hydromorphone HCl 0.25 mg 04/20/20 18:15 04/21/20 23:52 Dilaudid IV 0.25 mg Q4H PRN Administration Pain, Moderate (4-6) Cefepime HCl 2 gm in 100 mls @ 200 mls/hr 04/21/20 14:00 04/22/20 11:49 Cefepime/Ns 2 Gm/100 Ml IV Infused Q24HR NEFTALI Infusion Sodium Chloride 250 mls @ 999 mls/hr 04/23/20 07:45 04/23/20 07:55 Nacl 0.9% 250ml IV 04/23/20 10:45 999 mls/hr ONCE NEFTALI Administration Norepinephrine 4 mg in 250 mls @ 7.5 mls/hr 04/23/20 08:00 Levophed Drip 4 Mg/Ns 250 Ml IV TITR NEFTALI Protocol 2 MCG/MIN Insulin Glargine 25 units 04/21/20 22:00 04/22/20 22:00 Lantus SUB-Q 25 units QHS NEFTALI Administration Insulin Glargine 30 units 04/22/20 08:00 04/22/20 08:43 Lantus SUB-Q 30 units QAMDIAB NEFTALI Administration Insulin Human Lispro 0 unit 04/20/20 22:00 04/22/20 22:00 Humalog SUB-Q Not Given ACHS NEFTALI Protocol Insulin Human Lispro 10 unit 04/21/20 12:00 04/22/20 18:02 Humalog SUB-Q 10 unit AC NEFTALI Administration Latanoprost 1 drops 04/21/20 18:00 04/22/20 19:00 Latanoprost 0.005% OU 1 drops QPM NEFTALI Administration Sodium Chloride 10 ml 04/20/20 22:00 04/22/20 22:00 Sodium Chloride Flush Syringe 10 Ml IV 10 ml BID NEFTALI Administration Sodium Chloride 10 ml 04/20/20 18:15 Sodium Chloride Flush Syringe 10 Ml IV PRN PRN LINE FLUSH Tramadol HCl 50 mg 04/20/20 18:20 Ultram PO Q4HR PRN PAIN
[2020-04-23] MEDS: INSULIN LISPRO 100 UNIT/ML VIAL 3 mL SUB-Q SCH ×2 (08:25)
[2020-04-23] MEDS: INSULIN GLARGINE 100 UNITS/ML SUB-Q SCH (08:25)
[2020-04-23 08:55] LABS: Hematocrit 30.7 % (35.5-45.6); Hemoglobin 10.1 gm/dl (11.8-15.2); Mean Corpuscular HGB Conc 33 % (32-34); Mean Corpuscular Volume 91 fl (84-94); Platelet Count 89 K/mm3 (140-440); Red Blood Count 3.39 M/mm3 (3.65-5.03); Red Cell Distribution Width 15.6 % (13.2-15.2)
[2020-04-23 09:01] LABS: Calcium 7.7 mg/dL (8.4-10.2)
[2020-04-23] MEDS: APIXABAN 5 MG TAB PO SCH (09:33)
[2020-04-23] MEDS: dexAMETHasone 4 MG/ML VIAL IV SCH (09:33)
[2020-04-23] MEDS: CEFEPIME/NS 2 GM/100 ML 2 GM/100 ML BAG IV SCH (09:36)
[2020-04-23] MEDS ORDERED: COLCHICINE 0.6 MG CAP PO SCH (10:00)
--- NOTE | 2020-04-23 10:07 | Consultation ---
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 Patient is confused and in respiratory distress at the time of my evaluation and is unable to provide detailed history. Patient history taken from ED staff, EMS staff, as well as correction facility staff. As per staff the patient has experienced worsening shortness of breath over the past 1 day, with increased work of breathing. EMS was notified and upon arrival the patient was found to be in distress and subsequently transported to [facility] for further care and evaluation of the aforementioned symptoms. Patient seen and evaluated in the emergency department. All lab and imaging studies reviewed. Patient found to have a pulse oximetry of 86% on room air which is consistent with acute hypoxemic respiratory failure. Patient placed on noninvasive positive pressure ventilation with mild improvement in symptoms. Patient underwent chest x-ray and was found to have bilateral pneumonia complicated by sepsis, acute kidney injury. Patient admitted to ICU and initiated on sepsis protocol due to increased risk of multiple symptom organ dysfunction. Critical care team consulted. No further history obtainable. Advanced care planning conducted in ED. Renal consult is requested because of worsening renal function and oliguria. Patient is currently in the ICU. Currently on 30% high flow oxygen. Past History Past Medical History: acute MT, CAD, diabetes, heart failure, hypertension, ot her (See HPI) Past Surgical History: Other (Cardiac stent placement) Social history: . denies: smoking, alcohol abuse Family history: diabetes, hypertension Medications and Allergies Allergies Allergy/AdvReac Type Severity Reaction Status Date / Time No Known Allergies Allergy Unverified 01/06/18 00:20 Home Medications Medication Instructions Recorded Confirmed Last Taken Type Bimatoprost [Lumigan 0.01%] 1 drop OP QPM 01/06/18 04/20/20 Unknown History Colchicine 0.6 mg PO QDAY 01/06/18 04/20/20 Unknown History Apixaban [Eliquis] 5 mg PO BID #60 tablet 04/11/20 04/20/20 Unknown Rx Insulin Glargine [Lantus VIAL] 25 units SUB-Q QHS units 04/11/20 04/20/20 Unknown Rx Insulin Glargine [Lantus VIAL] 30 units SUB-Q QAMDIAB units 04/11/20 04/20/20 Unknown Rx Insulin Lispro [Humalog] 0 unit SUB-Q ACHS vial 04/11/20 04/20/20 Unknown Rx Insulin Lispro [Humalog] 10 unit SUB-Q AC vial 04/11/20 04/20/20 Unknown Rx Valsartan [Diovan] 160 mg PO DAILY tablet 04/11/20 04/20/20 Unknown Rx amLODIPine 10 mg PO QDAY tablet 04/11/20 04/20/20 Unknown Rx carvediloL [Coreg] 25 mg PO BID tablet 04/11/20 04/20/20 Unknown Rx hydrALAZINE [Apresoline TAB] 50 mg PO Q12HR tablet 04/11/20 04/20/20 Unknown Rx Acetaminophen [Tylenol] 2 tab PO Q6H PRN 04/20/20 04/20/20 Unknown History Furosemide [Lasix TAB] 40 mg PO QDAY 04/20/20 04/20/20 Unknown History Potassium 20 meq PO DAILY 04/20/20 04/20/20 Unknown History cephALEXin [Keflex] 500 mg PO QID 04/20/20 04/20/20 Unknown History traMADoL [Ultram] 50 mg PO Q4HR PRN 04/20/20 04/20/20 Unknown History Active Meds: Active Medications Acetaminophen (Tylenol) 650 mg PO Q6H PRN PRN Reason: Pain, Mild (1-3) Albuterol (Proventil) 2.5 mg IH Q3HRT PRN PRN Reason: Shortness Of Breath Apixaban (Eliquis) 5 mg PO BID NEFTALI; Protocol Last Admin: 04/23/20 09:33 Dose: 5 mg Documented by: Dexamethasone (Decadron) 6 mg IV Q24HR NEFTALI Stop: 05/01/20 10:01 Last Admin: 04/23/20 09:33 Dose: 6 mg Documented by: Dextrose (D50w (25gm) Syringe) 50 ml IV Q30MIN PRN; Protocol PRN Reason: Hypoglycemia Furosemide (Lasix) 20 mg IV DAILY@0600 [facility] Last Admin: 04/22/20 07:02 Dose: 20 mg Documented by: Hydromorphone HCl (Dilaudid) 0.25 mg IV Q4H PRN PRN Reason: Pain, Moderate (4-6) Last Admin: 04/21/20 23:52 Dose: 0.25 mg Documented by: Cefepime HCl (Cefepime/Ns 2 Gm/100 Ml) 2 gm in 100 mls @ 200 mls/hr IV Q24HR [facility] Last Admin: 04/23/20 09:36 Dose: 200 mls/hr Documented by: Sodium Chloride (Nacl 0.9% 250ml) 250 mls @ 999 mls/hr IV ONCE [facility] Stop: 04/23/20 10:45 Last Admin: 04/23/20 07:55 Dose: 999 mls/hr Documented by: Norepinephrine (Levophed Drip 4 Mg/Ns 250 Ml) 4 mg in 250 mls @ 7.5 mls/hr IV TITR NEFTALI; Protocol Insulin Glargine (Lantus) 25 units SUB-Q QHS [facility] Last Admin: 04/22/20 22:00 Dose: 25 units Documented by: Insulin Glargine (Lantus) 30 units SUB-Q QAMDIAB [facility] Last Admin: 04/23/20 08:25 Dose: Not Given Documented by: Insulin Human Lispro (Humalog) 0 unit SUB-Q ACHS [facility]; Protocol Last Admin: 04/23/20 08:25 Dose: Not Given Documented by: Insulin Human Lispro (Humalog) 10 unit SUB-Q AC [facility] Last Admin: 04/23/20 08:25 Dose: Not Given Documented by: Latanoprost (Latanoprost 0.005%) 1 drops OU QPM [facility] Last Admin: 04/22/20 19:00 Dose: 1 drops Documented by: Sodium Chloride (Sodium Chloride Flush Syringe 10 Ml) 10 ml IV BID [facility] Last Admin: 04/23/20 09:33 Dose: 10 ml Documented by: Sodium Chloride (Sodium Chloride Flush Syringe 10 Ml) 10 ml IV PRN PRN PRN Reason: LINE FLUSH Tramadol HCl (Ultram) 50 mg PO Q4HR PRN PRN Reason: PAIN Review of Systems ROS unobtainable: due to mental status Exam - Vital Signs Vital signs: Vital Signs Pulse Resp Pulse Ox 98 H 32 H 96 04/20/20 14:51 04/20/20 14:51 04/20/20 14:51 - General Appearance General appearance: well-developed, well-nourished, appears stated age EENT: PERRL, mucous membranes moist Neck: Present: neck supple, JVD/HJR (Neck veins appear to be engorged) Respiratory: Decreased Breath Sounds Heart: regular, normal heart rate, S1S2, no murmurs Gastrointestinal: Present: normal, normoactive bowel sounds Integumentary: no rash, other (2+ pitting edema) Results - Lab Results 04/23/20 07:31 04/23/20 07:31 Most recent lab results ABG pH 7.376 pH Units (7.350-7.450) 04/22/20 22:00 ABG pCO2 28.8 mm Hg 04/22/20 22:00 ABG pO2 113.5 mm Hg (80.0-90.0) H 04/22/20 22:00 ABG HCO3 16.5 mmol/L (20.0-26.0) L 04/22/20 22:00 ABG O2 Saturation 98.1 % (95.0-99.0) 04/22/20 22:00 Calcium 7.7 mg/dL (8.4-10.2) L 04/23/20 07:31 Assessment and Plan Impression * Acute on chronic renal failure. Baseline creatinine approximately 1.5-1.7. Patient is currently oliguric. Suspect superimposed acute tubular necrosis. * Respiratory failure * COVID-19 positive * Hyperkalemia * Metabolic acidosis Recommendations * Patient's renal function is getting worse and he is also oliguric. Patient is clinically volume overloaded as well. Currently requiring 30% high flow oxygen. * Patient needs renal replacement therapy. Discussed with patient's daughter Adrienne over telephone. She has verbally consented for dialysis. * Shall consult vascular surgery for access placement. Initiate dialysis after access * Shall check a UA as well as a fractional excretion of sodium * Renal ultrasound to assess kidney size and echogenicity * Vasculitis work-up * Avoid nephrotoxins * Strict I and O * Monitor fluid status and electrolytes closely * Diuretics as needed * Antibiotic as per primary team * Thank you very much for the consultation. Shall follow along with you
[2020-04-23] MEDS ORDERED: SODIUM CHLORIDE 0.9% 100 ML IV PRN (10:08)
[2020-04-23] MEDS ORDERED: ALBUMIN HUMAN 25% (25 GM/100 ML) INJ IV PRN (10:08)
[2020-04-23 10:53] LABS: Anisocytosis 1+; Band Neutrophils # (Manual) 1.7 K/mm3; Basophils % (Manual) 0 % (0.0-1.8); Burr Cells 1+; Eosinophils % (Manual) 0 % (0.0-4.3); Platelet Estimate Consistent w Auto; Poikilocytosis 1+; Total Cells Counted 100
[2020-04-23 10:55] VITALS: BP 73/25
[2020-04-23] MEDS ORDERED: LIDOCAINE PF 100 MG/5 ML (CARDIAC SYRINGE) IV ONE (11:00)
[2020-04-23] MEDS ORDERED: EPINEPHrine 1 MG/10 ML SYRINGE ONE (11:00)
[2020-04-23] MEDS ORDERED: SODIUM BICARB 8.4% 50 MEQ/50 ML SYRINGE IV ONE (11:00)
--- NOTE | 2020-04-23 11:35 | Event Note ---
Date: 04/23/20 Severe acidosis requiring emergent HD Cardiopulmonary arrest,
--- NOTE | 2020-04-23 11:59 | Event Note ---
Date: 04/23/20 A CONSTANCE NICOLE was called overhead. I presented to the bedside and the patient was found in asystolic arrest. The patient was treated in accordance with ACLS protocol without return of perfusing cardiac rhythm. On physical exam the patient was found to have asystole on the wallet assembler. The patient's pupils were fixed and dilated with lack of respiratory effort. The patient was pronounced at 1120 hrs. Patient family notification attempted. 60 minutes critical care time dedicated to patient care.
--- NOTE | 2020-04-23 12:19 | Death Summary ---
Summary - Providers Date of service: 04/23/20 Consults: 04/20/20 18:18 Consult to Physician [CONS] Routine Comment: Consulting Provider: ANGELA PINZON Physician Instructions: Reason For Exam: Respiratory Failure/Covid +/Pneumonia 04/22/20 10:14 Consult to Physician [CONS] Routine Comment: Consulting Provider: FABRICE WHYTE Physician Instructions: Reason For Exam: sepsis, pneumonia 04/23/20 07:42 PICC Line Placement [Consult to PICC Line RN] [CONS] Stat Reason For Exam: for high alert meds Type Line:: PICC 04/23/20 08:28 Consult to Physician [CONS] Routine Comment: called office/ [place] Consulting Provider: LONNIE GONSALVES Physician Instructions: Reason For Exam: Acute kidney injury 04/23/20 10:00 Consult to Physician [CONS] Urgent Comment: Consulting Provider: RAUL MEZA Physician Instructions: Reason For Exam: vascath placement Attending: DANIEL CORREA - summary Date of admission: 04/20/20 18:15 Date of : 04/23/20
--- NOTE | 2020-04-23 12:28 | Event Note ---
Date: 04/23/20 I called patient's daughter Ms. Rehman at [phone] and informed patient's cardiac arrest , CODE BLUE , resuscitation efforts And patient's expiration.Answered all her questions and encouraged her to call back if she has any new questions or concerns. Informed patient's nurse of the above conversation with the daughter
== END 2020-04-23 12:40 | DRG 871 ==
LOC: ED 14:38 → CC1 18:15
PROVIDERS: ADMIT Internal Medicine; ATTEND Internal Medicine
PROC: 5A09457 Assistance with Respiratory Ventilation, 24-96 Consecutive Hours, Continuous Positive Airway Pressure (ICD-10-PCS; principal; 2020-04-20)
PROC: 4A033R1 Measurement of Arterial Saturation, Peripheral, Percutaneous Approach (ICD-10-PCS; 2020-04-20)
PROC: 05HC33Z Insertion of Infusion Device into Left Basilic Vein, Percutaneous Approach (ICD-10-PCS; 2020-04-23)
PROC: B54NZZA Ultrasonography of Left Upper Extremity Veins, Guidance (ICD-10-PCS; 2020-04-23)
DX: A41.89 Other specified sepsis (principal); U07.1 COVID-19; J12.89 Other viral pneumonia; J96.01 Acute respiratory failure with hypoxia; G92 Toxic encephalopathy; N17.0 Acute kidney failure with tubular necrosis; I50.22 Chronic systolic (congestive) heart failure; I13.0 Hypertensive heart and chronic kidney disease with heart failure and stage 1 through stage 4 chronic kidney disease, or unspecified chronic kidney disease; Z68.41 Body mass index [BMI] 40.0-44.9, adult; R65.20 Severe sepsis without septic shock; N18.9 Chronic kidney disease, unspecified; E11.22 Type 2 diabetes mellitus with diabetic chronic kidney disease; R82.81 Pyuria; E66.01 Morbid (severe) obesity due to excess calories; E87.5 Hyperkalemia; I46.9 Cardiac arrest, cause unspecified; I25.10 Atherosclerotic heart disease of native coronary artery without angina pectoris; Z86.73 Personal history of transient ischemic attack (TIA), and cerebral infarction without residual deficits; Z87.440 Personal history of urinary (tract) infections; I25.2 Old myocardial infarction; Z83.3 Family history of diabetes mellitus; Z82.49 Family history of ischemic heart disease and other diseases of the circulatory system
CPT/HCPCS: 36415; 36600; 71045; 80048; 80053; 80061; 80202; 81001; 82140; 82803; 82805; 82962; 84484; 85007; 85025; 87040; 87076; 87086; 87186; 92950; 94660; 94760; G0378; J0171; J0692; J1100; J1170; J1200; J1815; J1940; J2001; J2930; J3370; J7040; J7050; U0003